=== PATIENT | female | born 1965 | race Caucasian/White ===

== ENCOUNTER 2020-02-05 11:10 | Outpatient (REF) | payer OTHER, SELFPAY ==
[2020-02-05 13:57] LABS: MANUAL DIFF FLAG NO
[2020-02-05 14:03] LABS: Basophils Percent Auto 0.5 % (0-2); Eosinophils Absolute Auto 0.4 X10*3/uL (0.0-0.4); Eosinophils Percent Auto 6.2 % (0-4); Hematocrit 42.5 % (37-47); Imm Gran Abs Auto 0.01 X10*3/uL (0.00-0.03); Imm Gran Pct Auto 0.2 % (0.0-0.4); Mean Corpuscular HGB Conc 32.9 g/dl (31.0-35.0); Mean Corpuscular Hemoglobin 29.8 pg (27.0-33.0); Mean Corpuscular Volume 90.4 fL (80-98); Mean Platelet Volume 9.6 fL (9.4-12.3); Monocytes Absolute Auto 0.6 X10*3/uL (0.1-1.2); Monocytes Percent Auto 9.5 % (2-11); Neutrophils Absolute Auto 3.3 X10*3/uL (2.0-8.3); Neutrophils Percent Auto 51.6 % (45-73); Platelet Count 242 X10*3/uL (160-400); Red Cell Distribution Width 13.4 % (11.0-16.0); White Blood Count 6.3 X10*3/uL (4.8-10.8)
[2020-02-05 14:30] LABS: Anion Gap 12 (12-20); Blood Urea Nitrogen 10 mg/dL (9-16); Carbon Dioxide 26 mmol/L (22-29); Chloride 104 mmol/L (96-108); Estimated Glomerular Filt Rate > 60; Glucose Random 99 mg/dL (60-115); Potassium 4.3 mmol/l (3.3-5.1); Sodium 138 mmol/L (135-145)
[2020-02-05 14:55] LABS: Ferritin 21 ng/mL (10-250); TSH reflex Free T4 1.61 mIU/mL (0.32-4.0)
[2020-02-06 12:01] LABS: LDL Cholesterol Direct 150 mg/dL (<100)
== END 2020-02-05 11:11 | disposition home or self-care (01) ==
LOC: HO.HMGCLDS 11:10
PROVIDERS: PCP Internal Medicine; Visit Provider Internal Medicine
DX: D50.9 Iron deficiency anemia, unspecified (principal); F33.9 Major depressive disorder, recurrent, unspecified; I10 Essential (primary) hypertension; J45.909 Unspecified asthma, uncomplicated
CPT/HCPCS: 36415; 80048; 82728; 83721; 84443; 85025

== ENCOUNTER 2020-03-18 09:13 | Outpatient (REF) | payer OTHER, SELFPAY ==
[2020-03-24 02:32] LABS: HPV mRNA E6/E7 rflx Not Detected (Not Detected)
== END 2020-03-18 09:14 | disposition home or self-care (01) ==
LOC: HO.LAB 09:13
PROVIDERS: PCP Internal Medicine; Referring Provider Internal Medicine; Visit Provider Obstetrics & Gynecology
DX: Z12.4 Encounter for screening for malignant neoplasm of cervix (principal)
CPT/HCPCS: 36415; 87624; 88142

== ENCOUNTER 2020-05-13 14:00 | Outpatient (REF) | payer OTHER, SELFPAY | END 2020-05-13 14:01 | disposition home or self-care (01) | LOC: HO.LNP 14:00 | PROVIDERS: Visit Provider Nurse Practitioner Family | DX: N39.0 Urinary tract infection, site not specified (principal) | CPT/HCPCS: 87086 ==

== ENCOUNTER 2020-06-27 08:28 | Outpatient (REF) | payer OTHER, SELFPAY ==
--- NOTE | ~2020-06-27 | MM_ITS ---
EXAMINATION: MM SCREENING DIGITAL BREAST TOMOSYNTHESIS, BILATERAL CLINICAL INFORMATION: Screening. Asymptomatic. The lifetime risk of breast cancer based on the Tyrer-Cuzick Model is 11%. COMPARISON: Mammography: 01/19/2020, 02/02/2018, 10/07/2016 TECHNIQUE: Digital breast tomosynthesis is performed in both the craniocaudal and mediolateral oblique views along with computer-aided detection (CAD). Synthesized 2D images are generated from the tomosynthesis. FINDINGS: There are scattered areas of fibroglandular density (ACR BI-RADS breast composition Category b). There are no significant masses, abnormal calcifications, or other abnormalities. Parenchymal pattern is similar to prior exams. The axilla and skin contours are unremarkable. MM/MM tomosynthesis screening BI IMPRESSION: No mammographic evidence of malignancy. ASSESSMENT: BI-RADS 1: Negative RECOMMENDATION: Routine annual mammography screening. This patient's information was entered into a reminder system with a target due date for their next mammogram.
== END 2020-06-27 08:29 | disposition home or self-care (01) ==
LOC: HO.MAMMO 08:28
PROVIDERS: PCP Internal Medicine; Visit Provider Internal Medicine
DX: Z12.31 Encounter for screening mammogram for malignant neoplasm of breast (principal)
CPT/HCPCS: 77063; 77067

== ENCOUNTER 2021-03-09 08:48 | Outpatient (REF) | payer OTHER, SELFPAY ==
[2021-03-09 11:17] LABS: MANUAL DIFF FLAG NO
[2021-03-09 11:35] LABS: Basophils Percent Auto 0.3 % (0-2); Eosinophils Absolute Auto 0.4 X10*3/uL (0.0-0.4); Eosinophils Percent Auto 5.4 % (0-4); Hematocrit 39.2 % (37.0-47.0); Hemoglobin 12.8 g/dl (12.0-16.0); Imm Gran Abs Auto 0.02 X10*3/uL (0.00-0.03); Imm Gran Pct Auto 0.3 % (0.0-0.4); Lymphocytes Absolute Auto 1.5 X10*3/uL (1.2-4.9); Lymphocytes Percent Auto 20.5 % (20-40); Mean Corpuscular HGB Conc 32.7 g/dl (31.0-35.0); Mean Corpuscular Hemoglobin 28.6 pg (27.0-33.0); Mean Corpuscular Volume 87.5 fL (80.0-98.0); Mean Platelet Volume 9.6 fL (9.4-12.3); Monocytes Absolute Auto 0.6 X10*3/uL (0.1-1.2); Monocytes Percent Auto 8.7 % (2-11); Neutrophils Absolute Auto 4.7 x10*3/uL (2.0-8.3); Neutrophils Percent Auto 64.8 % (45-73); Platelet Count 216 X10*3/uL (160-400); Red Blood Count 4.48 X10*6/uL (4.20-5.50); Red Cell Distribution Width 15.3 % (11.0-16.0); White Blood Count 7.2 X10*3/uL (4.8-10.8)
[2021-03-09 12:04] LABS: Alanine Aminotransferase 16 U/L (0-31); Albumin Level 4.4 g/dL (3.5-5.0); Alkaline Phosphatase 86 U/L (39-117); Anion Gap 10 (12-20); Aspartate Amino Transferase 14 U/L (5-31); Bilirubin Total 0.5 mg/dL (0.0-1.0); Blood Urea Nitrogen 17 mg/dL (9-16); Calcium 9.7 mg/dL (8.4-10.2); Carbon Dioxide 26 mmol/L (22-29); Chloride 106 mmol/L (96-108); Estimated Glomerular Filt Rate > 60; Glucose Random 99 mg/dL (60-115); Potassium 4.1 mmol/L (3.3-5.1); Sodium 138 mmol/L (135-145); Total Protein 6.8 g/dL (6.5-8.0)
== END 2021-03-09 08:49 | disposition home or self-care (01) ==
LOC: HO.HMGCLDS 08:48
PROVIDERS: PCP Internal Medicine; Visit Provider Internal Medicine
DX: I10 Essential (primary) hypertension (principal); J45.40 Moderate persistent asthma, uncomplicated
CPT/HCPCS: 36415; 80053; 85025

== ENCOUNTER → 2021-03-22 09:37 | Outpatient (BNVA) | payer OTHER, SELFPAY | PROVIDERS: Visit Provider Advanced Practice Midwife ==

== ENCOUNTER 2021-08-21 07:49 | Outpatient (REF) | payer OTHER, SELFPAY ==
--- NOTE | ~2021-08-21 | MM_ITS ---
EXAMINATION: MM SCREENING DIGITAL BREAST TOMOSYNTHESIS, BILATERAL CLINICAL INFORMATION: Screening. Asymptomatic. The lifetime risk of breast cancer based on the Tyrer-Cuzick Model is 10%. COMPARISON: Mammography: 06/27/2020, 04/20/2019, 02/02/2018 TECHNIQUE: Digital breast tomosynthesis is performed in both the craniocaudal and mediolateral oblique views along with computer-aided detection (CAD). Synthesized 2D images are generated from the tomosynthesis. FINDINGS: There are scattered areas of fibroglandular density (ACR BI-RADS breast composition Category b). There are no significant masses, abnormal calcifications, or other abnormalities. No developing density or architectural abnormality. The axilla and skin contours are unremarkable. No significant changes. MM/MM tomosynthesis screening BI IMPRESSION: No mammographic evidence of malignancy. ASSESSMENT: BI-RADS 1: Negative RECOMMENDATION: Routine annual mammography screening. This patient's information was entered into a reminder system with a target due date for their next mammogram.
== END 2021-08-21 07:50 | disposition home or self-care (01) ==
LOC: HO.MAMMO 07:49
PROVIDERS: Visit Provider Internal Medicine
DX: Z12.31 Encounter for screening mammogram for malignant neoplasm of breast (principal)
CPT/HCPCS: 77063; 77067

== ENCOUNTER 2021-08-25 09:55 | Outpatient (REF) | payer OTHER, SELFPAY ==
[2021-08-25 10:58] LABS: MANUAL DIFF FLAG NO
[2021-08-25 11:06] LABS: Basophils Percent Auto 0.3 % (0-2); Eosinophils Absolute Auto 0.4 X10*3/uL (0.0-0.4); Hematocrit 39.5 % (37.0-47.0); Hemoglobin 12.6 g/dl (12.0-16.0); Imm Gran Abs Auto 0.01 X10*3/uL (0.00-0.03); Imm Gran Pct Auto 0.2 % (0.0-0.4); Lymphocytes Absolute Auto 2.1 X10*3/uL (1.2-4.9); Lymphocytes Percent Auto 33.8 % (20-40); Mean Corpuscular HGB Conc 31.9 g/dl (31.0-35.0); Mean Corpuscular Hemoglobin 28.3 pg (27.0-33.0); Mean Corpuscular Volume 88.6 fL (80.0-98.0); Mean Platelet Volume 9.1 fL (9.4-12.3); Monocytes Absolute Auto 0.6 X10*3/uL (0.1-1.2); Monocytes Percent Auto 9.5 % (2-11); Neutrophils Absolute Auto 3.1 x10*3/uL (2.0-8.3); Neutrophils Percent Auto 50.2 % (45-73); Platelet Count 260 X10*3/uL (160-400); Red Blood Count 4.46 X10*6/uL (4.20-5.50); Red Cell Distribution Width 14.1 % (11.0-16.0); White Blood Count 6.2 X10*3/uL (4.8-10.8)
[2021-08-25 11:23] LABS: Alanine Aminotransferase 14 U/L (0-31); Albumin Level 4.3 g/dL (3.5-5.0); Alkaline Phosphatase 83 U/L (39-117); Anion Gap 10 (12-20); Aspartate Amino Transferase 13 U/L (5-31); Bilirubin Total 0.4 mg/dL (0.0-1.0); Blood Urea Nitrogen 16 mg/dL (9-16); Carbon Dioxide 26 mmol/L (22-29); Chloride 108 mmol/L (96-108); Estimated Glomerular Filt Rate > 60; Glucose Random 97 mg/dL (60-115); Potassium 4.2 mmol/L (3.3-5.1); Sodium 140 mmol/L (135-145); Total Protein 6.8 g/dL (6.5-8.0)
[2021-08-25 11:38] LABS: TSH reflex Free T4 1.13 uIU/mL (0.32-4.0)
== END 2021-08-25 09:56 | disposition home or self-care (01) ==
LOC: HO.HMGCLDS 09:55
PROVIDERS: PCP Internal Medicine; Visit Provider Internal Medicine
DX: I10 Essential (primary) hypertension (principal); J45.40 Moderate persistent asthma, uncomplicated; E66.09 Other obesity due to excess calories
CPT/HCPCS: 36415; 80053; 84443; 85025

== ENCOUNTER 2022-01-25 08:49 | Outpatient (REF) | payer OTHER, SELFPAY ==
[2022-01-25 11:32] LABS: MANUAL DIFF FLAG NO
[2022-01-25 11:43] LABS: Basophils Percent Auto 0.2 % (0-2); Eosinophils Absolute Auto 0.3 X10*3/uL (0.0-0.4); Eosinophils Percent Auto 4.8 % (0-4); Imm Gran Abs Auto 0.01 X10*3/uL (0.00-0.03); Imm Gran Pct Auto 0.2 % (0.0-0.4); Lymphocytes Percent Auto 33.2 % (20-40); Mean Corpuscular HGB Conc 32.5 g/dl (31.0-35.0); Mean Corpuscular Hemoglobin 29.1 pg (27.0-33.0); Mean Corpuscular Volume 89.5 fL (80.0-98.0); Mean Platelet Volume 9.9 fL (9.4-12.3); Monocytes Absolute Auto 0.5 X10*3/uL (0.1-1.2); Monocytes Percent Auto 8.6 % (2-11); Neutrophils Absolute Auto 3.2 x10*3/uL (2.0-8.3); Platelet Count 231 X10*3/uL (160-400); Red Blood Count 4.47 X10*6/uL (4.20-5.50); Red Cell Distribution Width 12.9 % (11.0-16.0); White Blood Count 6.1 X10*3/uL (4.8-10.8)
[2022-01-25 12:23] LABS: TSH reflex Free T4 1.21 uIU/mL (0.32-4.0)
[2022-01-25 12:29] LABS: Alanine Aminotransferase 18 U/L (0-31); Albumin Level 4.5 g/dL (3.5-5.0); Alkaline Phosphatase 83 U/L (39-117); Anion Gap 14 (12-20); Aspartate Amino Transferase 18 U/L (5-31); Bilirubin Total 0.4 mg/dL (0.0-1.0); Blood Urea Nitrogen 13 mg/dL (9-16); Calcium 9.4 mg/dL (8.4-10.2); Carbon Dioxide 27 mmol/L (22-29); Chloride 102 mmol/L (96-108); Estimated Glomerular Filt Rate > 60; Glucose Random 107 mg/dL (60-115); Potassium 3.9 mmol/L (3.3-5.1); Sodium 139 mmol/L (135-145)
[2022-01-26 06:31] LABS: LDL Cholesterol Direct 154 mg/dL (<100)
== END 2022-01-25 08:50 | disposition home or self-care (01) ==
LOC: HO.HMGCLDS 08:49
PROVIDERS: PCP Internal Medicine; Visit Provider Internal Medicine
DX: I48.0 Paroxysmal atrial fibrillation (principal); I10 Essential (primary) hypertension; J45.40 Moderate persistent asthma, uncomplicated; F33.9 Major depressive disorder, recurrent, unspecified
CPT/HCPCS: 36415; 80053; 83721; 84443; 85025

== ENCOUNTER → 2022-05-06 14:38 | Outpatient (BNVA) | payer OTHER, SELFPAY | PROVIDERS: PCP Internal Medicine; Visit Provider Advanced Practice Midwife | DX: Z13.89 Encounter for screening for other disorder (principal) ==

== ENCOUNTER 2022-10-06 07:25 | Outpatient (REF) | payer OTHER, SELFPAY ==
--- NOTE | ~2022-10-06 | MM_ITS ---
EXAMINATION: MM SCREENING DIGITAL BREAST TOMOSYNTHESIS, BILATERAL CLINICAL INFORMATION: Screening. Asymptomatic. The lifetime risk of breast cancer based on the Tyrer-Cuzick Model is 9%. COMPARISON: Mammography: This study is compared with prior exams dating back to 2018. TECHNIQUE: Digital breast tomosynthesis is performed in both the craniocaudal and mediolateral oblique views along with computer-aided detection (CAD). Synthesized 2D images are generated from the tomosynthesis. FINDINGS: There are scattered areas of fibroglandular density (ACR BI-RADS breast composition Category b). There are no significant masses, abnormal calcifications, or other abnormalities. MM/MM tomosynthesis screening BI IMPRESSION: No mammographic evidence of malignancy. ASSESSMENT: BI-RADS BI-RADS 1 - Negative RECOMMENDATION: Routine annual mammography screening. 1 year F/U This examination should not preclude the clinical evaluation of a suspicious palpable abnormality. This patient's information was entered into a reminder system with a target due date for their next mammogram.
== END 2022-10-06 07:26 | disposition home or self-care (01) ==
LOC: HO.MAMMO 07:25
PROVIDERS: PCP Internal Medicine; Visit Provider Internal Medicine
DX: Z12.31 Encounter for screening mammogram for malignant neoplasm of breast (principal)
CPT/HCPCS: 77063; 77067

== ENCOUNTER → 2022-10-06 07:30 | Outpatient (BNV) | payer OTHER, SELFPAY | PROVIDERS: PCP Internal Medicine; Visit Provider Radiology Diagnostic Radiology | DX: Z12.31 Encounter for screening mammogram for malignant neoplasm of breast (principal) | CPT/HCPCS: 77063; 77067 ==

== ENCOUNTER 2022-12-27 08:32 | Outpatient (AMB) | payer OTHER, SELFPAY ==
--- NOTE | 2022-12-27 08:40 | A.OFFPC_ITS ---
Vital Signs 3 12/27/22 08:44 Height 5 ft 5 in Weight 212 lb BMI 35.3 BP 132/84 Blood Pressure Location Rt brachial Position Sitting Pulse 56 Pulse Source Pulse Oximeter Pulse Oximetry (%) 96 Oxygen Delivery Method Room Air Intake Visit Reasons: Annual Physical Allergies Sulfa (Sulfonamide Antibiotics) [SULFA (SULFONAMIDE ANTIBIOTICS)] Allergy (Intermediate, Verified 12/27/22 08:46) RASH, rash, itching cyclobenzaprine [From Flexeril] Allergy (Unknown, Verified 12/27/22 08:46) worsens mood Medication List - Last Reconciled 12/27/22 by José Henriquez MD albuterol sulfate 90 mcg/actuation (ProAir HFA) 1 inh inhalation QID PRN 90 days aspirin (Adult Low Dose Aspirin) 81 mg PO DAILY calcium carbonate-vitamin D3 600 mg-10 mcg (400 unit) (Calcium 600 with Vitamin D3) 1 tab PO DAILY flecainide 100 mg PO Q12H fluoxetine 10 mg PO DAILY 90 days fluticasone propion-salmeterol 500-50 mcg/dose (Advair Diskus) 1 inh inhalation BID 90 days hydrochlorothiazide 25 mg PO DAILY 90 days metoprolol succinate ER 50 mg PO DAILY [id number] carb-K1 400 mcg-500 mg calcium-20 mcg (Women's 50 Plus Multivitamin) 1 tab PO DAILY Tobacco use date assessed: 12/27/22 Dental Screening Dental Screen Date: 12/27/22 Did you have a dental visit in the last 12 months?: Yes Did you have a dental problem in the last 6 months where you did not have access to dental care?: No Was dental information given to patient?: Patient has dentist HPI Annual Physical 2 HPI0 Details Patient is a 57-year-old female who was last seen January of last year Missed her regular follow-up appointment Patient have paroxysmal atrial fibrillation she is seeing [facility] and was started on flecainide Her rhythm is regular today Asthma is stable patient is on maintenance inhaler as well as rescue inhaler Major depression recurrent/anxiety: Patient is on fluoxetine 10 mg she is requesting if he can go up to 20 which I have sent for the patient She is due for labs order placed to be done fasting Patient says that she fell in November while walking on a pathway as it was a even she landed on her right shoulder She went to ER [facility] x-rays were negative However she continued to have pain right shoulder and have difficulty lifting her arm above the head She is requesting a referral to [facility]. Pap smears are through [facility] Colonoscopy was at age 50 patient will have a repeat colonoscopy in 3 years Mammogram was September of this year BMI is elevated at 35.3 patient is trying to lose weight. Follow-up 4 months family. social and surgical history was reviewed 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 1. Little interest or pleasure in doing things: not at all 2. Feeling down, depressed, or hopeless: several days 3. Trouble falling or staying asleep, or sleeping too much: not at all 4. Feeling tired or having little energy: several days 5. Poor appetite or overeating: not at all 6. Feeling bad about yourself - or that you are a failure or have let yourself or your family down: not at all 7. Trouble concentrating on things, such as reading the newspaper or watching television: not at all 8. Moving or speaking so slowly that other people could have noticed. Or the opposite - being so fidgety or restless that you have been moving around a lot more than usual: not at all 9. Thoughts that you would be better off or of hurting yourself in some way: not at all Total score: 2 Depression Screening Interpretation: Negative Depression Screening Done: Yes 11549 - PHQ-9 Billing: Yes Source: Developed by Drs. Camilo Dsouza, Sun Blandon, Sheldon Bean and colleagues, with an educational chepe from [employer]. Thrive Questionnaire Date Thrive assessed: 01/25/22 AUDIT C Alcohol Use Questionnaire (AUDIT-C) 1. How often do you have a drink containing alcohol?: Never 3. How often do you have six or more drinks on one occasion?: Never Total Score: 0 Score Reviewed/Action Taken: Yes IRIS-7 AMB Questionnaire IRIS-7 Date IRIS - 7 assessed: 01/25/22 Source: Developed by Drs. Camilo Dsouza, Sun Blandon, Sheldon Bean and colleagues, with an educational chepe from [employer]. Review of Systems Const Denies chills, Denies fever(s) and Denies headache(s) Eyes Denies blurry vision ENT Denies headache(s), Denies nasal discharge, Denies nasal obstruction, Denies odynophagia and Denies sinus pain Card Denies chest pain at rest and Denies chest pain with activity Resp Denies cough and Denies hemoptysis GI Denies diarrhea, Denies odynophagia, Denies vomiting and Denies hematemesis Reports as per HPI Musc Denies abnormal gait Skin/Breast Reports as per HPI Neuro Denies Neuro-related abnormal movements, Denies Abnormal speech present, Denies abnormal gait, Denies headache(s) and Denies Sensory deficit (Neuro) Psych Denies mood swings and Denies paranoia Endo Reports as per HPI Maninder/Lymph Reports as per HPI Aller/Immun Reports as per HPI Physical exam (Primary Care) Vital Signs: Last Vital Signs Pulse 56 12/27/22 08:44 BP 132/84 12/27/22 08:44 Pulse Ox 96 12/27/22 08:44 Oxygen Delivery Method Room Air 12/27/22 08:44 BMI result Body Mass Index 35.3 Tobacco/Smoking Status: Tobacco use Status Tobacco use date assessed 12/27/22 12/27/22 08:46 Patient Tobacco Use Status Never used Tobacco 12/27/22 08:42 e-Cigarette/Vaping Use Never Used 12/27/22 08:42 PHQ-9: PHQ-9 Score PHQ-9: Total score 2 12/27/22 09:51 Depression Screening Interpretation: Negative Thrive Assessment: Date of Thrive Assessment Date Thrive assessed 01/25/22 12/27/22 08:42 Const General: cooperative, comfortable and no acute distress Orientation/consciousness: patient oriented x3 HENMT Head: Yes normocephalic and Yes atraumatic Eyes General: appearance normal, both eyes and all related structures Pupils: Equal, round and reactive pupils present EOM: EOMs intact bilaterally Neck Neck: Yes supple and No lymphadenopathy Thyroid: Thyroid normal Lymphatic: no lymphadenopathy noted Resp Effort & Inspection: normal respiratory effort and able to speak in complete sentences Auscultation: clear to auscultation bilaterally Cardio Heart sounds: S1 normal heart sound present and S2 normal heart sound present GI Palpation (GI): Soft to palpation and nontender Auscultation: normal bowel sounds General: Yes no CVA tenderness Back/Spine/Pelvis Back: no CVA tenderness Skin General skin exam: elasticity normal and turgor normal Neuro General: patient oriented x3 and gait normal Cranial nerves: Yes Equal, round and reactive pupils present Speech: No Abnormal speech present Sensory Exam: No Sensory deficit (Neuro) Coordination: tandem gait normal and Romberg test negative Extrem General: Yes normal exam except as noted and No edema Shoulder/upper arm images: 2 1. Pain with palpation, limited range of motion in extension and abduction Assessment and Plan Assessment & Plan (1) Encounter for general adult medical examination with abnormal findings: Code(s): Z00.01 - Encounter for general adult medical examination with abnormal findings (2) Paroxysmal atrial fibrillation: Code(s): I48.0 - Paroxysmal atrial fibrillation (3) Hypertension, essential: Code(s): I10 - Essential (primary) hypertension (4) Right shoulder injury: Code(s): S49.91XA - Unspecified injury of right shoulder and upper arm, initial encounter Qualifiers: Encounter type: initial encounter Qualified Code(s): S49.91XA - Unspecified injury of right shoulder and upper arm, initial encounter (5) Asthma, moderate persistent: Code(s): J45.40 - Moderate persistent asthma, uncomplicated Qualifiers: Asthma complication type: uncomplicated Qualified Code(s): J45.40 - Moderate persistent asthma, uncomplicated (6) Depression, major, recurrent: Code(s): F33.9 - Major depressive disorder, recurrent, unspecified Qualifiers: Active/Remission status: currently active Major depression episode severity: mild Qualified Code(s): F33.0 - Major depressive disorder, recurrent, mild (7) Iron deficiency anemia: Code(s): D50.9 - Iron deficiency anemia, unspecified Qualifiers: Iron deficiency anemia type: unspecified iron deficiency Qualified Code(s): D50.9 - Iron deficiency anemia, unspecified (8) Tension headache: Code(s): G44.209 - Tension-type headache, unspecified, not intractable (9) Pain, joint, shoulder, right: Code(s): M25.511 - Pain in right shoulder Plan Patient is a 57-year-old female who was last seen January of last year Missed her regular follow-up appointment Patient have paroxysmal atrial fibrillation she is seeing [facility] and was started on flecainide Her rhythm is regular today Asthma is stable patient is on maintenance inhaler as well as rescue inhaler Major depression recurrent/anxiety: Patient is on fluoxetine 10 mg she is requesting if he can go up to 20 which I have sent for the patient She is due for labs order placed to be done fasting Headaches are stable Patient says that she fell in November while walking on a pathway as it was a even she landed on her right shoulder She went to ER [facility] x-rays were negative However she continued to have pain right shoulder and have difficulty lifting her arm above the head She is requesting a referral to [facility]. Pap smears are through [facility] Colonoscopy was at age 50 patient will have a repeat colonoscopy in 3 years Mammogram was September of this year BMI is elevated at 35.3 patient is trying to lose weight. Follow-up 4 months Orders: Orders 2 Complete Blood Count Auto Diff Today D50.9 - Iron deficiency anemia, unspecified, F33.9 - Major depressive disorder, recurrent, unspecified, G44.209 - Tension-type headache, unspecified, not intractable, I10 - Essential (primary) hypertension, I48.0 - Paroxysmal atrial fibrillation, J45.40 - Moderate persistent asthma, uncomplicated, J45.909 - Unspecified asthma, uncomplicated Lipid Panel Today D50.9 - Iron deficiency anemia, unspecified, F33.9 - Major depressive disorder, recurrent, unspecified, G44.209 - Tension-type headache, unspecified, not intractable, I10 - Essential (primary) hypertension, I48.0 - Paroxysmal atrial fibrillation, J45.40 - Moderate persistent asthma, uncomplicated, J45.909 - Unspecified asthma, uncomplicated Comprehensive [place]. Panel Fast Today D50.9 - Iron deficiency anemia, unspecified, F33.9 - Major depressive disorder, recurrent, unspecified, G44.209 - Tension-type headache, unspecified, not intractable, I10 - Essential (primary) hypertension, I48.0 - Paroxysmal atrial fibrillation, J45.40 - Moderate persistent asthma, uncomplicated, J45.909 - Unspecified asthma, uncomplicated Referrals 2 Orthopedics Referral M25.511 - Pain in right shoulder, S49.91XA - Unspecified injury of right shoulder and upper arm, initial encounter Medications: Changed 2 From fluoxetine 10 mg PO DAILY 90 days 90 caps 1RF To fluoxetine 20 mg PO DAILY 90 caps 1RF 90 days Refilled 2 albuterol sulfate 90 mcg/actuation (ProAir HFA) 1 inh inhalation QID PRN 3 multiple units 3RF shortness of breath or wheezing 90 days J45.40 - Moderate persistent asthma, uncomplicated Coding Level of Care Code Est Pt Prev Care 40-64y(16652) Diagnoses Encounter for general adult medical examination with abnormal findings Z00.01 Paroxysmal atrial fibrillation I48.0 Hypertension, essential I10 Injury of right shoulder, initial encounter S49.91XA Encounter type: initial encounter Moderate persistent asthma without complication J45.40 Asthma complication type: uncomplicated Mild episode of recurrent major depressive disorder F33.0 Active/Remission status: currently active Major depression episode severity: mild Iron deficiency anemia, unspecified iron deficiency anemia type D50.9 Iron deficiency anemia type: unspecified iron deficiency Tension headache G44.209 Pain, joint, shoulder, right M25.511
[2022-12-27 08:44] VITALS: BP 132/84; PULSE 56; O2SAT 96; BMI 35.3
== END 2022-12-27 10:38 | disposition home or self-care (01) ==
PROVIDERS: PCP Internal Medicine; Visit Provider Internal Medicine
DX: Z00.00 Encounter for general adult medical examination without abnormal findings (principal); I48.0 Paroxysmal atrial fibrillation; F33.0 Major depressive disorder, recurrent, mild; I10 Essential (primary) hypertension; S49.91XA Unspecified injury of right shoulder and upper arm, initial encounter; J45.40 Moderate persistent asthma, uncomplicated; D50.9 Iron deficiency anemia, unspecified; G44.209 Tension-type headache, unspecified, not intractable; M25.511 Pain in right shoulder
CPT/HCPCS: 99396

== ENCOUNTER 2023-05-12 13:47 | Outpatient (AMB) | payer OTHER, SELFPAY ==
--- NOTE | 2023-05-12 14:02 | MHC.OFFVIS ---
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 She is doing well with no concerns. Attempting to eat a healthy diet with calcium and vitamin D and stays active with exercise w/walking at work. Currently not sexually active. Denies any vaginal dryness or irritation. STI testing offered; she declines. Last pap smear; 2020. Last mammogram; 2022. Colonoscopy is UTD. Pt. is adopted. [facility] Medical History Obesity Depression, major, recurrent Iron deficiency anemia Tension headache Asthma Hypertension, essential Surgical History H/O shoulder surgery History of laparoscopy History of tonsillectomy History of bilateral breast reduction surgery Family History Mother Unknown family medical history Unknown Adopted Social History Household Members: Spouse and Children Housing: House Alcohol intake: never Patient Tobacco Use Status: Never used Tobacco e-Cigarette/Vaping Use: Never Used Second Hand Smoke Exposure: No service: No Current occupational status: employed 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 Sexual orientation: Straight/Heterosexual Gender identity: Female Cognitive needs: No Hearing needs: No Vision needs: No Female Reproductive History Menstrual Age of Menarche: 13 Total pregnancies: 4 Number of Living Children: 3 Ab spontaneous: 1 Date of last pap smear: 03/19/20 Date of Mammogram: 10/06/22 Review of Systems Const All systems reviewed & are unremarkable except as noted in HPI and below Reports as per HPI Eyes Reports no additional complaints ENT Reports no additional complaints Card Reports no additional complaints Resp Reports no additional complaints GI Reports as per HPI and Reports no additional complaints Reports as per HPI Musc Reports no additional complaints Skin/Breast Reports as per HPI Neuro Reports no additional complaints Psych Reports no additional complaints Endo Reports no additional complaints Maninder/Lymph Reports no additional complaints Aller/Immun Reports no additional complaints Physical Exam Vital Signs: Last Vital Signs BP 126/70 05/12/23 14:03 BMI result Body Mass Index 35.4 Const General: cooperative, healthy appearing, no acute distress, well developed and alert Orientation/consciousness: patient oriented x3 HEENT Head: Yes normal to inspection Eyes General: appearance normal, both eyes and all related structures Neck Neck: Yes normal visual inspection Thyroid: Thyroid normal Chest Chest palpation & inspection: normal inspection of the chest and other (no puckering, dimpling, peau de orange, retraction, discharge, masses) Breast/axilla inspection: normal inspection of the breasts Breast/axilla palpation: normal palpation of the breasts Resp Effort & Inspection: normal respiratory effort GI Inspection: Yes normal to inspection Palpation (GI): Soft to palpation Rectal Exam - Female: deferred General: Yes bladder normal to palpation External Female Exam: normal external appearance and normal appearance of the urethra Speculum Exam - Vagina: normal appearance of the vagina, normal palpation, normal vaginal discharge and vagina atrophic Speculum Exam - Cervix: normal appearance of the cervix and normal palpation Bimanual exam- vagina & uterus: normal bimanual exam, normal palpation, uterine size normal, bladder normal to palpation, normal palpation and non-tender Bimanual Exam- Adnexa, other: no masses Skin General skin exam: no rashes or lesions noted Rashes: no rashes Neuro General: patient oriented x3 Cognition (Neuro): normal cognition Extrem General: Yes normal to inspection Psych Attitude: cooperative Thought process: Normal thought process present Assessment & Plan Assessment & Plan (1) Encounter for well woman exam with routine gynecological exam: Code(s): Z01.419 - Encounter for gynecological examination (general) (routine) without abnormal findings Plan Discussed: Current recommendations for pap smears per ASCCP guidelines. Breast awareness, periodic self breast exams and yearly mammogram. Maintain a healthy lifestyle, well balanced diet including Calcium 1,200 mg and Vitamin D 600 IU daily, and routine exercise. Contact the office with any postmenopausal bleeding. Patient verbalizes understanding and agrees to the plan of care. She was given opportunity to ask questions and all questions were answered to the best of my ability. RTO in 1 year for annual wet machine tender exam. This note is constructed using voice recognition software. While every effort has been made to ensure accuracy, design teacher errors may have been included. Coding Level of Care Code Est Pt Prev Care 40-64y(18547) Diagnoses Encounter for well woman exam with routine gynecological exam Z01.419
[2023-05-12 14:03] VITALS: BP 126/70; BMI 35.4
== END 2023-05-12 14:25 | disposition home or self-care (01) ==
LOC: HO.HWS 13:52
PROVIDERS: PCP Internal Medicine; Visit Provider Advanced Practice Midwife
DX: Z01.419 Encounter for gynecological examination (general) (routine) without abnormal findings (principal)
CPT/HCPCS: 99396

== ENCOUNTER → 2023-05-12 13:47 | Outpatient (BNVA) | payer OTHER, SELFPAY | PROVIDERS: PCP Internal Medicine; Visit Provider Advanced Practice Midwife ==

== ENCOUNTER 2023-07-11 09:01 | Outpatient (AMB) | payer OTHER, SELFPAY ==
[2023-07-11 09:05] VITALS: BP 128/78; PULSE 65; O2SAT 97; BMI 36.0
--- NOTE | 2023-07-11 09:05 | A.OFFPC_ITS ---
Vital Signs 07/11/23 09:05 Height 5 ft 5 in Weight 216 lb 6 oz BMI 36.0 BP 128/78 Blood Pressure Location Rt brachial Position Sitting Pulse 65 Pulse Source Pulse Oximeter Pulse Oximetry (%) 97 Oxygen Delivery Method Room Air Intake Visit Reasons: 4 month fu Allergies Sulfa (Sulfonamide Antibiotics) [SULFA (SULFONAMIDE ANTIBIOTICS)] Allergy (Intermediate, Verified 07/11/23 09:08) RASH, rash, itching cyclobenzaprine [From Flexeril] Allergy (Unknown, Verified 07/11/23 09:08) worsens mood Medication List - Last Reconciled 07/11/23 by José Henriquez MD albuterol sulfate 90 mcg/actuation (ProAir HFA) 1 inh inhalation QID PRN 90 days aspirin (Adult Low Dose Aspirin) 81 mg PO DAILY calcium carbonate-vitamin D3 600 mg-10 mcg (400 unit) (Calcium 600 with Vitamin D3) 1 tab PO DAILY flecainide 100 mg PO Q12H fluoxetine 20 mg PO DAILY 90 days fluticasone propion-salmeterol 500-50 mcg/dose (Advair Diskus) 1 inh inhalation BID 90 days hydrochlorothiazide 25 mg PO DAILY 90 days metoprolol succinate ER 50 mg (1/2 x 100 mg) PO DAILY [id number] carb-K1 400 mcg-500 mg calcium-20 mcg (Women's 50 Plus Multivitamin) 1 tab PO DAILY Tobacco use date assessed: 07/11/23 Dental Screening Dental Screen Date: 07/11/23 Did you have a dental visit in the last 12 months?: Yes Did you have a dental problem in the last 6 months where you did not have access to dental care?: No Was dental information given to patient?: Patient has dentist HPI 4 month fu HPI Details Patient is a 57-year-old female came in for her regular follow-up appointment Patient has been feeling under stress due to alcoholism of Currently she is on fluoxetine 20 mg which was working for her, however she want to go up on the dose I have increased it to 40 mg Patient have paroxysmal atrial fibrillation she is seeing [facility] and was started on flecainide 100 mg b.i.d. Her rhythm is regular today Asthma is stable patient is on maintenance inhaler as well as rescue inhaler Labs are still not done, I have changed the order to nonfasting so she can have that done today. 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 Discussed with the patient that it is a series of 4 vaccination over 2 weeks, 0, 3, 7, 14 days And she can get it through pharmacy if she need a script she will let me know Follow-up 4 months [facility] Medical History Obesity Depression, major, recurrent Iron deficiency anemia Tension headache Asthma Hypertension, essential Surgical History H/O shoulder surgery History of laparoscopy History of tonsillectomy History of bilateral breast reduction surgery Family History Mother Unknown family medical history Unknown Adopted Social History Household Members: Spouse and Children Housing: House Alcohol intake: never Patient Tobacco Use Status: Never used Tobacco e-Cigarette/Vaping Use: Never Used Second Hand Smoke Exposure: No service: No Current occupational status: employed 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 1. Little interest or pleasure in doing things: not at all 2. Feeling down, depressed, or hopeless: several days 3. Trouble falling or staying asleep, or sleeping too much: not at all 4. Feeling tired or having little energy: several days 5. Poor appetite or overeating: not at all 6. Feeling bad about yourself - or that you are a failure or have let yourself or your family down: not at all 7. Trouble concentrating on things, such as reading the newspaper or watching television: not at all 8. Moving or speaking so slowly that other people could have noticed. Or the opposite - being so fidgety or restless that you have been moving around a lot more than usual: not at all 9. Thoughts that you would be better off or of hurting yourself in some way: not at all Total score: 2 Depression Screening Interpretation: Negative Depression Screening Done: Yes 66272 - PHQ-9 Billing: Yes Source: Developed by Drs. Camilo Dsouza, Sun Blandon, Sheldon Bean and colleagues, with an educational chepe from [employer]. Thrive Questionnaire Date Thrive assessed: 01/25/22 AUDIT C Alcohol Use Questionnaire (AUDIT-C) 1. How often do you have a drink containing alcohol?: Never 3. How often do you have six or more drinks on one occasion?: Never Total Score: 0 Score Reviewed/Action Taken: Yes IRIS-7 AMB Questionnaire IRIS-7 Date IRIS - 7 assessed: 01/25/22 Source: Developed by Drs. Camilo Dsouza, Sun Blandon, Sheldon Bean and colleagues, with an educational chepe from [employer]. Review of Systems Const Denies chills and Denies fever(s) ENT Denies epistaxis and Denies nasal discharge Card Denies chest pain Resp Denies chest congestion, Denies cough and Denies hemoptysis GI Denies diarrhea and Denies nausea Skin/Breast Denies rash Neuro Reports no additional complaints Psych Reports no additional complaints Endo Reports no additional complaints Physical exam (Primary Care) Vital Signs: Last Vital Signs Pulse 65 07/11/23 09:05 BP 128/78 07/11/23 09:05 Pulse Ox 97 07/11/23 09:05 Oxygen Delivery Method Room Air 07/11/23 09:05 BMI result Body Mass Index 36.0 Tobacco/Smoking Status: Tobacco use Status Tobacco use date assessed 07/11/23 07/11/23 09:08 Patient Tobacco Use Status Never used Tobacco 07/11/23 09:08 e-Cigarette/Vaping Use Never Used 07/11/23 09:08 Depression Screening Interpretation: Negative Thrive Assessment: Date of Thrive Assessment Date Thrive assessed 01/25/22 07/11/23 09:08 Const General: cooperative, comfortable and no acute distress Orientation/consciousness: patient oriented x3 HENMT Head: Yes normocephalic Eyes General: appearance normal, both eyes and all related structures Neck Neck: Yes supple Resp Effort & Inspection: normal respiratory effort, no cough and no stridor Cardio Rhythm: regular rhythm Heart sounds: S1 normal heart sound present and S2 normal heart sound present Skin General skin exam: turgor normal Neuro General: patient oriented x3, tone normal and moves all extremities Extrem Right lower extremity: no edema Left lower extremity: no edema Assessment and Plan Assessment & Plan (1) Hypertension, essential: Code(s): I10 - Essential (primary) hypertension (2) Asthma, moderate persistent: Code(s): J45.40 - Moderate persistent asthma, uncomplicated Qualifiers: Asthma complication type: uncomplicated Qualified Code(s): J45.40 - Moderate persistent asthma, uncomplicated (3) Iron deficiency anemia: Code(s): D50.9 - Iron deficiency anemia, unspecified Qualifiers: Iron deficiency anemia type: unspecified iron deficiency Qualified Code(s): D50.9 - Iron deficiency anemia, unspecified (4) Depression, major, recurrent: Code(s): F33.9 - Major depressive disorder, recurrent, unspecified Qualifiers: Active/Remission status: currently active Major depression episode severity: mild Qualified Code(s): F33.0 - Major depressive disorder, recurrent, mild (5) Paroxysmal atrial fibrillation: Code(s): I48.0 - Paroxysmal atrial fibrillation (6) Obesity due to excess calories: Code(s): E66.09 - Other obesity due to excess calories Qualifiers: Body mass index: BMI 36.0-36.9 Obesity classification: adult class 2 (BMI 35 - 39.9) Serious obesity comorbidity presence: with serious comorbidity Qualified Code(s): E66.01 - Morbid (severe) obesity due to excess calories; Z68.36 - Body mass index [BMI] 36.0-36.9, adult Plan Patient is a 57-year-old female came in for her regular follow-up appointment Patient has been feeling under stress due to alcoholism of Currently she is on fluoxetine 20 mg which was working for her, however she want to go up on the dose I have increased it to 40 mg Patient have paroxysmal atrial fibrillation she is seeing [facility] and was started on flecainide 100 mg b.i.d. Her rhythm is regular today Asthma is stable patient is on maintenance inhaler as well as rescue inhaler Labs are still not done, I have changed the order to nonfasting so she can have that done today. 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 Discussed with the patient that it is a series of 4 vaccination over 2 weeks, 0, 3, 7, 14 days And she can get it through pharmacy if she need a script she will let me know Follow-up 4 months Orders: Orders LDL Cholesterol Direct Today D50.9 - Iron deficiency anemia, unspecified, E66.09 - Other obesity due to excess calories, F33.0 - Major depressive disorder, recurrent, mild, I10 - Essential (primary) hypertension, I48.0 - Paroxysmal atrial fibrillation, J45.40 - Moderate persistent asthma, uncompli cated TSH reflex Free T4 Today D50.9 - Iron deficiency anemia, unspecified, E66.09 - Other obesity due to excess calories, F33.0 - Major depressive disorder, recurrent, mild, I10 - Essential (primary) hypertension, I48.0 - Paroxysmal atrial fibrillation, J45.40 - Moderate persistent asthma, uncomplicated Complete Blood Count Auto Diff Today D50.9 - Iron deficiency anemia, unspecified, E66.09 - Other obesity due to excess calories, F33.0 - Major depressive disorder, recurrent, mild, I10 - Essential (primary) hypertension, I48.0 - Paroxysmal atrial fibrillation, J45.40 - Moderate persistent asthma, uncomplicated Comprehensive Met. Panel Today D50.9 - Iron deficiency anemia, unspecified, E66.09 - Other obesity due to excess calories, F33.0 - Major depressive disorder, recurrent, mild, I10 - Essential (primary) hypertension, I48.0 - Paroxysmal atrial fibrillation, J45.40 - Moderate persistent asthma, uncomplic ated Medications: Changed From fluoxetine 20 mg PO DAILY 90 days 90 caps 1RF To fluoxetine 40 mg (2 x 20 mg) PO DAILY 90 days 180 caps 1RF Refilled fluoxetine 40 mg (2 x 20 mg) PO DAILY 180 caps 1RF 90 days Coding Level of Care Code Est Pt Level 4 (55058) Diagnoses Hypertension, essential I10 Moderate persistent asthma without complication J45.40 Asthma complication type: uncomplicated Iron deficiency anemia, unspecified iron deficiency anemia type D50.9 Iron deficiency anemia type: unspecified iron deficiency Mild episode of recurrent major depressive disorder F33.0 Active/Remission status: currently active Major depression episode severity: mild Paroxysmal atrial fibrillation I48.0 Class 2 severe obesity due to excess calories with serious comorbidity and body mass index (BMI) of 36.0 to 36.9 in adult E66.01; Z68.36 Body mass index: BMI 36.0-36.9 Obesity classification: adult class 2 (BMI 35 - 39.9) Serious obesity comorbidity presence: with serious comorbidity
== END 2023-07-11 09:38 | disposition home or self-care (01) ==
PROVIDERS: PCP Internal Medicine; Visit Provider Internal Medicine
DX: I48.0 Paroxysmal atrial fibrillation (principal); F33.0 Major depressive disorder, recurrent, mild; E66.01 Morbid (severe) obesity due to excess calories; Z68.36 Body mass index [BMI] 36.0-36.9, adult; I10 Essential (primary) hypertension; J45.40 Moderate persistent asthma, uncomplicated; D50.9 Iron deficiency anemia, unspecified
CPT/HCPCS: 99214

== ENCOUNTER 2023-07-11 09:39 | Outpatient (REF) | payer OTHER, SELFPAY ==
[2023-07-11 13:23] LABS: MANUAL DIFF FLAG NO
[2023-07-11 13:33] LABS: Basophils Percent Auto 0.3 % (0-2); Eosinophils Absolute Auto 0.4 X10*3/uL (0.0-0.4); Eosinophils Percent Auto 5.5 % (0-4); Imm Gran Abs Auto 0.03 X10*3/uL (0.00-0.03); Imm Gran Pct Auto 0.4 % (0.0-0.4); Lymphocytes Absolute Auto 2.1 X10*3/uL (1.2-4.9); Lymphocytes Percent Auto 26.9 % (20-40); Mean Corpuscular HGB Conc 32.4 g/dl (31.0-35.0); Mean Corpuscular Hemoglobin 28.4 pg (27.0-33.0); Mean Corpuscular Volume 87.7 fL (80.0-98.0); Mean Platelet Volume 9.5 fL (9.4-12.3); Monocytes Absolute Auto 0.6 X10*3/uL (0.1-1.2); Monocytes Percent Auto 7.8 % (2-11); Neutrophils Absolute Auto 4.6 x10*3/uL (2.0-8.3); Neutrophils Percent Auto 59.1 % (45-73); Platelet Count 261 X10*3/uL (160-400); Red Blood Count 4.22 X10*6/uL (4.20-5.50); White Blood Count 7.8 X10*3/uL (4.8-10.8)
[2023-07-11 14:11] LABS: Alanine Aminotransferase 21 U/L (0-31); Albumin Level 4.3 g/dL (3.5-5.0); Alkaline Phosphatase 79 U/L (39-117); Anion Gap 13 (12-20); Aspartate Amino Transferase 29 U/L (5-31); Bilirubin Total 0.3 mg/dL (0.0-1.0); Blood Urea Nitrogen 23 mg/dL (9-16); Calcium 9.6 mg/dL (8.4-10.2); Carbon Dioxide 27 mmol/L (22-29); Chloride 101 mmol/L (96-108); Estimated Glomerular Filt Rate > 60; Glucose Random 94 mg/dL (60-115); Sodium 137 mmol/L (135-145); Total Protein 7.3 g/dL (6.5-8.0)
[2023-07-11 14:13] LABS: TSH reflex Free T4 1.15 uIU/mL (0.32-4.0)
[2023-07-12 10:09] LABS: LDL Cholesterol Direct 150 mg/dL (<100)
== END 2023-07-11 09:40 | disposition home or self-care (01) ==
LOC: HO.HMGCLDS 09:39
PROVIDERS: PCP Internal Medicine; Visit Provider Internal Medicine
DX: I10 Essential (primary) hypertension (principal); D50.9 Iron deficiency anemia, unspecified; F33.0 Major depressive disorder, recurrent, mild; J45.40 Moderate persistent asthma, uncomplicated; E66.09 Other obesity due to excess calories; I48.0 Paroxysmal atrial fibrillation
CPT/HCPCS: 36415; 80053; 83721; 84443; 85025

== ENCOUNTER 2023-10-10 07:17 | Outpatient (REF) | payer OTHER, SELFPAY ==
--- NOTE | ~2023-10-10 | MM_ITS ---
EXAMINATION: MM SCREENING DIGITAL BREAST TOMOSYNTHESIS, BILATERAL CLINICAL INFORMATION: Screening. Asymptomatic. The patient has a history of prior remote breast reduction. COMPARISON: Mammography: This study is compared with prior exams dating back to 2019. TECHNIQUE: Digital breast tomosynthesis is performed in both the craniocaudal and mediolateral oblique views along with computer-aided detection (CAD). Synthesized 2D images are generated from the tomosynthesis. FINDINGS: The breasts are almost entirely fatty (ACR BI-RADS breast composition Category a). There are no significant masses, abnormal calcifications, or other abnormalities. MM/MM tomosynthesis screening BI IMPRESSION: No mammographic evidence of malignancy. ASSESSMENT: BI-RADS BI-RADS 1 - Negative RECOMMENDATION: Routine annual mammography screening. 1 year F/U This examination should not preclude the clinical evaluation of a suspicious palpable abnormality. This patient's information was entered into a reminder system with a target due date for their next mammogram.
== END 2023-10-10 07:18 | disposition home or self-care (01) ==
LOC: HO.MAMMO 07:17
PROVIDERS: PCP Internal Medicine; Visit Provider Internal Medicine
DX: Z12.31 Encounter for screening mammogram for malignant neoplasm of breast (principal)
CPT/HCPCS: 77063; 77067

== ENCOUNTER → 2023-10-10 07:30 | Outpatient (BNV) | payer OTHER, SELFPAY | PROVIDERS: PCP Internal Medicine; Visit Provider Radiology Diagnostic Radiology | DX: Z12.31 Encounter for screening mammogram for malignant neoplasm of breast (principal) | CPT/HCPCS: 77063; 77067 ==

== ENCOUNTER 2023-11-03 09:28 | Outpatient (AMB) | payer OTHER, SELFPAY ==
[2023-11-03 09:34] VITALS: BP 130/88; PULSE 64; O2SAT 96; BMI 35.6
--- NOTE | 2023-11-03 09:34 | MHC.PC.OV ---
Vital Signs 11/03/23 09:34 Height 5 ft 5 in Weight 214 lb 4 oz BMI 35.6 BP 130/88 Blood Pressure Location Lt brachial Position Sitting Pulse 64 Pulse Source Pulse Oximeter Pulse Oximetry (%) 96 Oxygen Delivery Method Room Air Intake Visit Reasons: 8 month fu Allergies Sulfa (Sulfonamide Antibiotics) [SULFA (SULFONAMIDE ANTIBIOTICS)] Allergy (Intermediate, Verified 11/03/23 09:37) RASH, rash, itching cyclobenzaprine [From Flexeril] Allergy (Unknown, Verified 11/03/23 09:37) worsens mood Medication List - Last Reconciled 11/03/23 by José Henriquez MD albuterol sulfate 90 mcg/actuation (ProAir HFA) 1 inh inhalation QID PRN 90 days aspirin (Adult Low Dose Aspirin) 81 mg PO DAILY calcium carbonate-vitamin D3 600 mg-10 mcg (400 unit) (Calcium 600 with Vitamin D3) 1 tab PO DAILY flecainide 100 mg PO Q12H fluoxetine 40 mg (2 x 20 mg) PO DAILY 90 days fluticasone propion-salmeterol 500-50 mcg/dose (Advair Diskus) 1 inh inhalation BID 90 days hydrochlorothiazide 25 mg PO DAILY 90 days metoprolol succinate ER 50 mg (1/2 x 100 mg) PO DAILY kk-olb-towlx-calcium carb-K1 400 mcg-500 mg calcium-20 mcg (Women's 50 Plus Multivitamin) 1 tab PO DAILY Tobacco use date assessed: 11/03/23 Dental Screening Dental Screen Date: 11/03/23 Did you have a dental visit in the last 12 months?: Yes Did you have a dental problem in the last 6 months where you did not have access to dental care?: No Was dental information given to patient?: Patient has dentist HPI 8 month fu HPI Details Patient is a 57-year-old female came in for her regular follow-up appointment BMI is elevated at 35.7, patient is requesting a script for Wegovy for weight loss She has hypertension, atrial fibrillation, and obesity. After reviewing the side effects script was sent Patient agreed to come in 4 weeks for follow-up after starting the medication She says that she knows how to give herself injections Patient has been feeling under stress due to alcoholism of Currently she is on fluoxetine 40 mg daily Patient says that family has been trying to get him to quit but it has not worked so far Patient have paroxysmal atrial fibrillation she is seeing [facility] and was started on flecainide 100 mg b.i.d. 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 Patient has appointment for physical exam in January labs are needed today [facility] Medical History Obesity Depression, major, recurrent Iron deficiency anemia Tension headache Asthma Hypertension, essential Surgical History H/O shoulder surgery History of laparoscopy History of tonsillectomy History of bilateral breast reduction surgery Family History Mother Unknown family medical history Unknown Adopted Social History Household Members: Spouse and Children Housing: House Alcohol intake: never Patient Tobacco Use Status: Never used Tobacco e-Cigarette/Vaping Use: Never Used Second Hand Smoke Exposure: No service: No Current occupational status: employed 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 1. Little interest or pleasure in doing things: not at all 2. Feeling down, depressed, or hopeless: not at all 3. Trouble falling or staying asleep, or sleeping too much: not at all 4. Feeling tired or having little energy: not at all 5. Poor appetite or overeating: not at all 6. Feeling bad about yourself - or that you are a failure or have let yourself or your family down: not at all 7. Trouble concentrating on things, such as reading the newspaper or watching television: not at all 8. Moving or speaking so slowly that other people could have noticed. Or the opposite - being so fidgety or restless that you have been moving around a lot more than usual: not at all 9. Thoughts that you would be better off or of hurting yourself in some way: not at all Total score: 0 Depression Screening Interpretation: Negative Depression Screening Done: Yes 32326 - PHQ-9 Billing: Yes Source: Developed by Drs. Camilo Dsouza, Sun Blandon, Sheldon Bean and colleagues, with an educational chepe from [employer]. Thrive Questionnaire Date Thrive assessed: 11/03/23 I am a: Patient What is your living situation today?: I have a steady place to live Within the past 12 months, did the food you bought not last and you didn't have the money to get more?: Never true Within the past 12 months, did you worry whether your food would run out before you got money to buy more?: Never true Do you have trouble paying for medicines?: No Do you have trouble getting transportation to medical appointments?: No Do you have trouble paying your heating and electricity bill?: No Do you have trouble taking care of your child, family member or friend?: No Do you have trouble with day-to-day activities such as bathing, preparing meals, shopping, managing finances, etc.?: No Are you currently unemployed and looking for a job?: No Are you interested in more education?: No Please select the resources that you would like help with: None Currently or been in a relationship where the following occur: No concerns reported THRIVE Score: 0 AUDIT C Alcohol Use Questionnaire (AUDIT-C) 1. How often do you have a drink containing alcohol?: Never 3. How often do you have six or more drinks on one occasion?: Never Total Score: 0 Score Reviewed/Action Taken: Yes IRIS-7 AMB Questionnaire IRIS-7 Date IRIS - 7 assessed: 11/03/23 Feeling nervous, anxious, or on edge: 0 = Not at all Not being able to stop or control worryin = Not at all Worrying too much about different things: 0 = Not at all Trouble relaxin = Not at all Being so restless that it is hard to sit still: 0 = Not at all Becoming easily annoyed or irritable: 0 = Not at all Feeling afraid as if something awful might happen: 0 = Not at all Total IRIS-7 score (0-4 normal; 5-9 mild; 10-14 moderate; 15-21 severe): 0 Source: Developed by Drs. Camilo Dsouza, Sun Blandon, Sheldon Bean and colleagues, with an educational chepe from [employer]. IRIS-7 Assessment Billing IRIS-7 Assessment Tool: IRIS-7 Assessment 59409 Review of Systems Const Denies chills and Denies fever(s) ENT Denies epistaxis and Denies nasal discharge Card Denies chest pain Resp Denies chest congestion, Denies cough and Denies hemoptysis GI Denies diarrhea and Denies nausea Skin/Breast Denies rash Neuro Reports no additional complaints Psych Reports no additional complaints Endo Reports no additional complaints Physical exam (Primary Care) Vital Signs: Last Vital Signs Pulse 64 11/03/23 09:34 BP 130/88 11/03/23 09:34 Pulse Ox 96 11/03/23 09:34 Oxygen Delivery Method Room Air 11/03/23 09:34 BMI result Body Mass Index 35.6 Tobacco/Smoking Status: Tobacco use Status Tobacco use date assessed 11/03/23 11/03/23 09:38 Patient Tobacco Use Status Never used Tobacco 11/03/23 09:38 e-Cigarette/Vaping Use Never Used 11/03/23 09:38 PHQ-9: PHQ-9 Score PHQ-9: Total score 0 11/03/23 09:52 Depression Screening Interpretation: Negative Thrive Assessment: Date of Thrive Assessment Date Thrive assessed 11/03/23 11/03/23 09:38 Currently or been in a relationship where the following occur: No concerns reported Const General: cooperative, comfortable and no acute distress Orientation/consciousness: patient oriented x3 HENNM Head: Yes normocephalic Eyes General: appearance normal, both eyes and all related structures Neck Neck: Yes supple Resp Effort & Inspection: normal respiratory effort, no cough and no stridor Cardio Rhythm: regular rhythm Heart sounds: S1 normal heart sound present and S2 normal heart sound present Skin General skin exam: turgor normal Neuro General: patient oriented x3, tone normal and moves all extremities Extrem Right lower extremity: no edema Left lower extremity: no edema Assessment and Plan Assessment & Plan (1) Paroxysmal atrial fibrillation: Code(s): I48.0 - Paroxysmal atrial fibrillation (2) Obesity due to excess calories: Code(s): E66.09 - Other obesity due to excess calories Qualifiers: Body mass index: BMI 36.0-36.9 Obesity classification: adult class 2 (BMI 35 - 39.9) Serious obesity comorbidity presence: with serious comorbidity Qualified Code(s): E66.01 - Morbid (severe) obesity due to excess calories; Z68.36 - Body mass index [BMI] 36.0-36.9, adult (3) Asthma, moderate persistent: Code(s): J45.40 - Moderate persistent asthma, uncomplicated Qualifiers: Asthma complication type: uncomplicated Qualified Code(s): J45.40 - Moderate persistent asthma, uncomplicated (4) Depression, major, recurrent: Code(s): F33.9 - Major depressive disorder, recurrent, unspecified Qualifiers: Active/Remission status: currently active Major depression episode severity: mild Qualified Code(s): F33.0 - Major depressive disorder, recurrent, mild (5) Hypertension, essential: Code(s): I10 - Essential (primary) hypertension Plan Patient is a 57-year-old female came in for her regular follow-up appointment BMI is elevated at 35.7, patient is requesting a script for Sasha for weight loss She has hypertension, atrial fibrillation, and obesity. After reviewing the side effects script was sent Patient agreed to come in 4 weeks for follow-up after starting the medication She says that she knows how to give herself injections Patient has been feeling under stress due to alcoholism of Currently she is on fluoxetine 40 mg daily Patient says that family has been trying to get him to quit but it has not worked so far Patient have paroxysmal atrial fibrillation she is seeing [facility] and was started on flecainide 100 mg b.i.d. 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 Panel Today E66.01 - Morbid (severe) obesity due to excess calories, F33.0 - Major depressive disorder, recurrent, mild, I10 - Essential (primary) hypertension, I48.0 - Paroxysmal atrial fibrillation, J45.40 - Moderate persistent asthma, uncomplicated, Z68.36 - Body mass index [BMI] 36.0-36.9, adult Amylase Today E66.01 - Morbid (severe) obesity due to excess calories, F33.0 - Major depressive disorder, recurrent, mild, I10 - Essential (primary) hypertension, I48.0 - Paroxysmal atrial fibrillation, J45.40 - Moderate persistent asthma, uncomplicated, Z68.36 - Body mass index [BMI] 36.0-36.9, adult LDL Cholesterol Direct Today E66.01 - Morbid (severe) obesity due to excess calories, F33.0 - Major depressive disorder, recurrent, mild, I10 - Essential (primary) hypertension, I48.0 - Paroxysmal atrial fibrillation, J45.40 - Moderate persistent asthma, uncomplicated, Z68.36 - Body mass index [BMI] 36.0-36.9, adult Complete Blood Count Auto Diff Today E66.01 - Morbid (severe) obesity due to excess calories, F33.0 - Major depressive disorder, recurrent, mild, I10 - Essential (primary) hypertension, I48.0 - Paroxysmal atrial fibrillation, J45.40 - Moderate persistent asthma, uncomplicated, Z68.36 - Body mass index [BMI] 36.0-36.9, adult Medications: New Wegovy (semaglutide (weight loss)) administer weeks 1 through 4 of therapy 0.25 mg (0.5 mL) subcut QWEEK 2 mL 1RF NS E66.01 - Morbid (severe) obesity due to excess calories, I10 - Essential (primary) hypertension, I48.0 - Paroxysmal atrial fibrillation, J45.40 - Moderate persistent asthma, uncomplicated, Z68.36 - Body mass index [BMI] 36.0-36.9, adult Wegovy (semaglutide (weight loss)) administer weeks 1 through 4 of therapy 0.25 mg (0.5 mL) subcut QWEEK 2 mL 1RF NS E66.01 - Morbid (severe) obesity due to excess calories, I10 - Essential (primary) hypertension, I48.0 - Paroxysmal atrial fibrillation, J45.40 - Moderate persistent asthma, uncomplicated, Z68.36 - Body mass index [BMI] 36.0-36.9, adult Coding Level of Care Code Est Pt Level 4 (64790) Diagnoses Paroxysmal atrial fibrillation I48.0 Class 2 severe obesity due to excess calories with serious comorbidity and body mass index (BMI) of 36.0 to 36.9 in adult E66.01; Z68.36 Body mass index: BMI 36.0-36.9 Obesity classification: adult class 2 (BMI 35 - 39.9) Serious obesity comorbidity presence: with serious comorbidity Moderate persistent asthma without complication J45.40 Asthma complication type: uncomplicated Mild episode of recurrent major depressive disorder F33.0 Active/Remission status: currently active Major depression episode severity: mild Hypertension, essential I10 Additional Codes IRIS-7 Assessment Billing - IRIS-7 Assessment Tool: IRIS-7 Assessment [id number] ([id number])
== END 2023-11-03 09:52 | disposition home or self-care (01) ==
PROVIDERS: PCP Internal Medicine; Visit Provider Internal Medicine
DX: I48.0 Paroxysmal atrial fibrillation (principal); E66.01 Morbid (severe) obesity due to excess calories; F33.0 Major depressive disorder, recurrent, mild; Z68.36 Body mass index [BMI] 36.0-36.9, adult; J45.40 Moderate persistent asthma, uncomplicated; I10 Essential (primary) hypertension
CPT/HCPCS: 99214

== ENCOUNTER 2023-11-03 09:54 | Outpatient (REF) | payer OTHER, SELFPAY ==
[2023-11-03 13:32] LABS: MANUAL DIFF FLAG NO
[2023-11-03 13:36] LABS: Basophils Percent Auto 0.4 % (0-2); Eosinophils Absolute Auto 0.3 X10*3/uL (0.0-0.4); Eosinophils Percent Auto 4.6 % (0-4); Hematocrit 37.6 % (37.0-47.0); Hemoglobin 12.3 g/dl (12.0-16.0); Imm Gran Abs Auto 0.02 X10*3/uL (0.00-0.03); Imm Gran Pct Auto 0.3 % (0.0-0.4); Lymphocytes Absolute Auto 2.2 X10*3/uL (1.2-4.9); Lymphocytes Percent Auto 31.4 % (20-40); Mean Corpuscular HGB Conc 32.7 g/dl (31.0-35.0); Mean Corpuscular Hemoglobin 27.8 pg (27.0-33.0); Mean Corpuscular Volume 84.9 fL (80.0-98.0); Mean Platelet Volume 9.5 fL (9.4-12.3); Monocytes Absolute Auto 0.6 X10*3/uL (0.1-1.2); Monocytes Percent Auto 8.1 % (2-11); Neutrophils Absolute Auto 3.8 x10*3/uL (2.0-8.3); Neutrophils Percent Auto 55.2 % (45-73); Platelet Count 298 X10*3/uL (160-400); Red Blood Count 4.43 X10*6/uL (4.20-5.50); Red Cell Distribution Width 14.7 % (11.0-16.0); White Blood Count 6.9 X10*3/uL (4.8-10.8)
[2023-11-03 14:05] LABS: Alanine Aminotransferase 15 U/L (0-31); Albumin Level 4.4 g/dL (3.5-5.0); Alkaline Phosphatase 88 U/L (39-117); Amylase 46 U/L (28-100); Anion Gap 12 (12-20); Aspartate Amino Transferase 25 U/L (5-31); Bilirubin Total 0.4 mg/dL (0.0-1.0); Blood Urea Nitrogen 13 mg/dL (9-16); Calcium 9.4 mg/dL (8.4-10.2); Carbon Dioxide 28 mmol/L (22-29); Chloride 102 mmol/L (96-108); Cholesterol 248 mg/dL (<200); Estimated Glomerular Filt Rate > 60; Glucose Fasting 103 mg/dL (60-99); Glucose Random 103 mg/dL (60-115); HDL Cholesterol 72 mg/dL (>40); LDL Cholesterol Calculated 155 mg/dL (<100); Potassium 3.4 mmol/L (3.3-5.1); Sodium 139 mmol/L (135-145); Total Protein 7.5 g/dL (6.5-8.0); Triglycerides 107 mg/dL (<150)
[2023-11-04 10:08] LABS: LDL Cholesterol Direct 170 mg/dL (<100)
== END 2023-11-03 09:55 | disposition home or self-care (01) ==
LOC: HO.HMGCLDS 09:54
PROVIDERS: PCP Internal Medicine; Visit Provider Internal Medicine
DX: I10 Essential (primary) hypertension (principal); F33.9 Major depressive disorder, recurrent, unspecified; D50.9 Iron deficiency anemia, unspecified; J45.909 Unspecified asthma, uncomplicated; G44.209 Tension-type headache, unspecified, not intractable; J45.40 Moderate persistent asthma, uncomplicated; I48.0 Paroxysmal atrial fibrillation; E66.01 Morbid (severe) obesity due to excess calories; Z68.36 Body mass index [BMI] 36.0-36.9, adult; F33.0 Major depressive disorder, recurrent, mild
CPT/HCPCS: 36415; 80053; 80061; 82150; 83721; 85025

== ENCOUNTER 2024-01-12 07:56 | Outpatient (AMB) | payer OTHER, SELFPAY ==
[2024-01-12 07:59] VITALS: BP 140/84; PULSE 65; O2SAT 97; BMI 35.6
--- NOTE | 2024-01-12 07:59 | A.OFFPC_ITS ---
Vital Signs 01/12/24 07:59 Height 5 ft 5 in Weight 214 lb BMI 35.6 BP 140/84 H Blood Pressure Location Rt brachial Position Sitting Pulse 65 Pulse Source Pulse Oximeter Pulse Oximetry (%) 97 Oxygen Delivery Method Room Air Intake Visit Reasons: Annual PE Allergies Sulfa (Sulfonamide Antibiotics) [SULFA (SULFONAMIDE ANTIBIOTICS)] Allergy (Intermediate, Verified 01/12/24 08:02) RASH, rash, itching cyclobenzaprine [From Flexeril] Allergy (Unknown, Verified 01/12/24 08:02) worsens mood Medication List - Last Reconciled 01/12/24 by José Henriquez MD albuterol sulfate 90 mcg/actuation (ProAir HFA) 1 inh inhalation QID PRN 90 days aspirin (Adult Low Dose Aspirin) 81 mg PO DAILY calcium carbonate-vitamin D3 600 mg-10 mcg (400 unit) (Calcium 600 with Vitamin D3) 1 tab PO DAILY flecainide 100 mg PO Q12H fluoxetine 40 mg (2 x 20 mg) PO DAILY 90 days fluticasone propion-salmeterol 500-50 mcg/dose (Advair Diskus) 1 inh inhalation BID 90 days hydrochlorothiazide 25 mg PO DAILY 90 days metoprolol succinate ER 50 mg (1/2 x 100 mg) PO DAILY [id number]-calcium carb-K1 400 mcg-500 mg calcium-20 mcg (Women's 50 Plus Mul tivitamin) 1 tab PO DAILY Wegovy (semaglutide (weight loss)) 0.25 mg (0.5 mL) subcut QWEEK NS Tobacco use date assessed: 01/12/24 Dental Screening Dental Screen Date: 01/12/24 Did you have a dental visit in the last 12 months?: Yes Did you have a dental problem in the last 6 months where you did not have access to dental care?: No Was dental information given to patient?: Patient has dentist HPI Annual PE HPI Details Patient is a 58-year-old female came in for physical exam appointment Patient would like to be on Wegovy injection for weight loss We tried to send it to her pharmacy, but so far she has not been able to pick it up We are trying to sort out the problem, I have given her the print out as well Pharmacy keeps saying that it needs a prior authorization however in the system when we sent the prescription no prior authorization pops up Patient have paroxysmal atrial fibrillation she is seeing [facility] and was started on flecainide Her rhythm is regular today Asthma is stable patient is on maintenance inhaler as well as rescue inhaler Major depression recurrent/anxiety: Patient is on fluoxetine 40 mg of fluoxetine, doing well She is aware that Semaglutide can make the depression worse Labs were done October of this year Patient is prediabetic Her lipids are elevated as well, I am starting her on simvastatin 20 mg She will repeat labs again in 2 months, order placed Pap smears are through [facility] Colonoscopy was at age 50 patient will have a repeat colonoscopy at age 60 Mammogram up-to-date Follow-up 4 months [facility] Medical History Obesity Depression, major, recurrent Iron deficiency anemia Tension headache Asthma Hypertension, essential Surgical History H/O shoulder surgery History of laparoscopy History of tonsillectomy History of bilateral breast reduction surgery Family History Mother Unknown family medical history Unknown Adopted Social History Household Members: Spouse and Children Housing: House Alcohol intake: never Patient Tobacco Use Status: Never used Tobacco e-Cigarette/Vaping Use: Never Used Second Hand Smoke Exposure: No service: No Current occupational status: employed 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 Sexual orientation: Straight/Heterosexual Gender identity: Female Cognitive needs: No Hearing needs: No Vision needs: Yes Female Reproductive History Menstrual Age of Menarche: 13 Questionnaire Thrive Questionnaire Date Thrive assessed: 10/27/23 I am a: Patient What is your living situation today?: I have a steady place to live Within the past 12 months, did the food you bought not last and you didn't have the money to get more?: Never true Within the past 12 months, did you worry whether your food would run out before you got money to buy more?: Never true Do you have trouble paying for medicines?: No Do you have trouble getting transportation to medical appointments?: No Do you have trouble paying your heating and electricity bill?: No Do you have trouble taking care of your child, family member or friend?: No Do you have trouble with day-to-day activities such as bathing, preparing meals, shopping, managing finances, etc.?: No Are you currently unemployed and looking for a job?: No Are you interested in more education?: No Please select the resources that you would like help with: None Currently or been in a relationship where the following occur: No concerns reported THRIVE Score: 0 AUDIT C Alcohol Use Questionnaire (AUDIT-C) 3. How often do you have six or more drinks on one occasion?: Never Total Score: 0 IRIS-7 AMB Questionnaire IRIS-7 Date IRIS - 7 assessed: 11/03/23 Source: Developed by Drs. Camilo Dsouza, Sun Blandon, Sheldon Bean and colleagues, with an educational chepe from [employer]. Review of Systems Const Denies chills, Denies fever(s) and Denies headache(s) Eyes Denies blurry vision ENT Denies headache(s), Denies nasal discharge, Denies nasal obstruction, Denies odynophagia and Denies sinus pain Card Denies chest pain at rest and Denies chest pain with activity Resp Denies cough and Denies hemoptysis GI Denies diarrhea, Denies odynophagia, Denies vomiting and Denies hematemesis Reports as per HPI Musc Denies abnormal gait Skin/Breast Reports as per HPI Neuro Denies Neuro-related abnormal movements, Denies Abnormal speech present, Denies abnormal gait, Denies headache(s) and Denies Sensory deficit (Neuro) Psych Denies mood swings and Denies paranoia Endo Reports as per HPI Maninder/Lymph Reports as per HPI Aller/Immun Reports as per HPI Physical exam (Primary Care) Vital Signs: Last Vital Signs Pulse 65 01/12/24 07:59 BP 140/84 H 01/12/24 07:59 Pulse Ox 97 01/12/24 07:59 Oxygen Delivery Method Room Air 01/12/24 07:59 BMI result Body Mass Index 35.6 Tobacco/Smoking Status: Tobacco use Status Tobacco use date assessed 01/12/24 01/12/24 08:03 Patient Tobacco Use Status Never used Tobacco 01/12/24 08:03 e-Cigarette/Vaping Use Never Used 01/12/24 08:03 Thrive Assessment: Date of Thrive Assessment Date Thrive assessed 10/27/23 01/12/24 08:03 Currently or been in a relationship where the following occur: No concerns reported Const General: cooperative, comfortable and no acute distress Orientation/consciousness: patient oriented x3 HENMT Head: Yes normocephalic and Yes atraumatic Eyes General: appearance normal, both eyes and all related structures Pupils: Equal, round and reactive pupils present EOM: EOMs intact bilaterally Neck Neck: Yes supple and No lymphadenopathy Thyroid: Thyroid normal Lymphatic: no lymphadenopathy noted Chest Breast/axilla palpation: normal palpation of the breasts Resp Effort & Inspection: normal respiratory effort and able to speak in complete sentences Auscultation: clear to auscultation bilaterally Cardio Heart sounds: S1 normal heart sound present and S2 normal heart sound present GI Palpation (GI): Soft to palpation and nontender Auscultation: normal bowel sounds General: Yes no CVA tenderness Back/Spine/Pelvis Back: no CVA tenderness Skin General skin exam: elasticity normal and turgor normal Neuro General: patient oriented x3 and gait normal Cranial nerves: Yes Equal, round and reactive pupils present Speech: No Abnormal speech present Sensory Exam: No Sensory deficit (Neuro) Coordination: tandem gait normal and Romberg test negative Extrem General: Yes normal exam except as noted and No edema Coding Level of Care Code Est Pt Level 3 (45578) Est Pt Prev Care 40-64y(34067) Diagnoses Encounter for general adult medical examination with abnormal findings Z. Lipid disorder E78.9 Paroxysmal atrial fibrillation I48.0 Class 2 severe obesity due to excess calories with serious comorbidity and body mass index (BMI) of 36.0 to 36.9 in adult E66.01; Z68.36 Body mass index: BMI 36.0-36.9 Obesity classification: adult class 2 (BMI 35 - 39.9) Serious obesity comorbidity presence: with serious comorbidity Moderate persistent asthma without complication J45.40 Asthma complication type: uncomplicated Mild episode of recurrent major depressive disorder F33.0 Active/Remission status: currently active Major depression episode severity: mild Hypertension, essential I10 Assessment & Plan Assessment & Plan (1) Encounter for general adult medical examination with abnormal findings: Code(s): Z00.01 - Encounter for general adult medical examination with abnormal findings Category: Medical (2) Lipid disorder: Code(s): E78.9 - Disorder of lipoprotein metabolism, unspecified Category: Medical (3) Paroxysmal atrial fibrillation: Code(s): I48.0 - Paroxysmal atrial fibrillation Category: Medical (4) Obesity due to excess calories: Code(s): E66.09 - Other obesity due to excess calories Category: Medical Qualifiers: Body mass index: BMI 36.0-36.9 Obesity classification: adult class 2 (BMI 35 - 39.9) Serious obesity comorbidity presence: with serious comorbidity Qualified Code(s): E66.01 - Morbid (severe) obesity due to excess calories; Z68.36 - Body mass index [BMI] 36.0-36.9, adult (5) Asthma, moderate persistent: Code(s): J45.40 - Moderate persistent asthma, uncomplicated Category: Medical Qualifiers: Asthma complication type: uncomplicated Qualified Code(s): J45.40 - Moderate persistent asthma, uncomplicated (6) Depression, major, recurrent: Code(s): F33.9 - Major depressive disorder, recurrent, unspecified Category: Medical Qualifiers: Active/Remission status: currently active Major depression episode severity: mild Qualified Code(s): F33.0 - Major depressive disorder, recurrent, mild (7) Hypertension, essential: Code(s): I10 - Essential (primary) hypertension Category: Medical Plan Patient is a 58-year-old female came in for physical exam appointment Patient would like to be on Wegovy injection for weight loss We tried to send it to her pharmacy, but so far she has not been able to pick it up We are trying to sort out the problem, I have given her the print out as well Pharmacy keeps saying that it needs a prior authorization however in the system when we sent the prescription no prior authorization pops up Patient have paroxysmal atrial fibrillation she is seeing [facility] and was started on flecainide Her rhythm is regular today Asthma is stable patient is on maintenance inhaler as well as rescue inhaler Major depression recurrent/anxiety: Patient is on fluoxetine 40 mg of fluoxetine, doing well She is aware that Semaglutide can make the depression worse Labs were done October of this year Patient is prediabetic Her lipids are elevated as well, I am starting her on simvastatin 20 mg She will repeat labs again in 2 months, order placed Pap smears are through [facility] Colonoscopy was at age 50 patient will have a repeat colonoscopy at age 60 Mammogram up-to-date Follow-up 4 months Orders: Orders Comprehensive Met. Panel 6 Weeks E78.9 - Disorder of lipoprotein metabolism, unspecified Comprehensive [place]. Panel Fast 6 Weeks E78.9 - Disorder of lipoprotein metabolism, unspecified Medications: New simvastatin 20 mg PO DAILY 90 tabs 0RF Refilled Wegovy (semaglutide (weight loss)) administer weeks 1 through 4 of therapy 0.25 mg (0.5 mL) subcut QWEEK 2 mL 1RF NS E66.01 - Morbid (severe) obesity due to excess calories, I10 - Essential (primary) hypertension, I48.0 - Paroxysmal atrial fibrillation, J45.40 - Moderate persistent asthma, uncomplicated, Z68.36 - Body mass index [BMI] 36.0- 36.9, adult Wegovy (semaglutide (weight loss)) administer weeks 1 through 4 of therapy 0.25 mg (0.5 mL) subcut QWEEK 2 mL 1RF NS E66.01 - Morbid (severe) obesity due to excess calories, I10 - Essential (primary) hypertension, I48.0 - Paroxysmal atrial fibrillation, J45.40 - Moderate persistent asthma, uncomplicated, Z68.36 - Body mass index [BMI] 36.0-3 6.9, adult Wegovy (semaglutide (weight loss)) administer weeks 1 through 4 of therapy 0.25 mg (0.5 mL) subcut QWEEK 2 mL 1RF NS E66.01 - Morbid (severe) obesity due to excess calories, I10 - Essential (primary) hypertension, I48.0 - Paroxysmal atrial fibrillation, J45.40 - Moderate persistent asthma, uncomplicated, Z68.36 - Body mass index [BMI] 36.0- 36.9, adult
== END 2024-01-12 08:44 | disposition home or self-care (01) ==
LOC: HO.HMCC 07:57
PROVIDERS: PCP Internal Medicine; Visit Provider Internal Medicine
DX: Z00.00 Encounter for general adult medical examination without abnormal findings (principal); I48.0 Paroxysmal atrial fibrillation; E66.01 Morbid (severe) obesity due to excess calories; F33.0 Major depressive disorder, recurrent, mild; Z68.36 Body mass index [BMI] 36.0-36.9, adult; E78.9 Disorder of lipoprotein metabolism, unspecified; J45.40 Moderate persistent asthma, uncomplicated; I10 Essential (primary) hypertension

== ENCOUNTER → 2024-01-12 07:56 | Outpatient (BNVA) | payer OTHER, SELFPAY | PROVIDERS: PCP Internal Medicine; Visit Provider Internal Medicine | DX: Z00.01 Encounter for general adult medical examination with abnormal findings (principal); E78.9 Disorder of lipoprotein metabolism, unspecified; I48.0 Paroxysmal atrial fibrillation; E66.01 Morbid (severe) obesity due to excess calories; Z68.36 Body mass index [BMI] 36.0-36.9, adult; J45.40 Moderate persistent asthma, uncomplicated; F33.0 Major depressive disorder, recurrent, mild; I10 Essential (primary) hypertension | CPT/HCPCS: 99212 ==

== ENCOUNTER 2024-05-16 08:03 | Outpatient (AMB) | payer OTHER, SELFPAY ==
--- NOTE | 2024-05-16 08:06 | MHC.OFFVIS ---
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 She is doing well with operations liaison concerns. Currently not sexually active. Denies any vaginal dryness or irritation. Attempting to eat a healthy diet with calcium and vitamin D and stays active with exercise. Last pap smear; 2020. Last mammogram; 2023. Colonoscopy is UTD. Patient is adopted. REPLACED BY [facility] Medical History (Updated 05/16/24 @ 08:11 by Whitney Barraza CNM) Encounter for well woman exam with routine gynecological exam Obesity Depression, major, recurrent Iron deficiency anemia Tension headache Asthma Hypertension, essential Surgical History H/O shoulder surgery History of laparoscopy History of tonsillectomy History of bilateral breast reduction surgery Family History Mother Unknown family medical history Unknown Adopted Social History Household Members: Spouse and Children Housing: House Alcohol intake: never Patient Tobacco Use Status: Never used Tobacco e-Cigarette/Vaping Use: Never Used Second Hand Smoke Exposure: No service: No Current occupational status: employed 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 Sexual orientation: Straight/Heterosexual Gender identity: Female Cognitive needs: No Hearing needs: No Vision needs: Yes Female Reproductive History Menstrual Age of Menarche: 13 Total pregnancies: 4 Full term: 3 Number of Living Children: 4 (1 child adopted) Ab spontaneous: 1 Date of last pap smear: 03/18/20 (neg pap and hpv) Date of Mammogram: 10/10/23 (Bir[facility] 1) Review of Systems Const All systems reviewed & are unremarkable except as noted in HPI and below Reports as per HPI Eyes Reports no additional complaints ENT Reports no additional complaints Card Reports no additional complaints Resp Reports no additional complaints GI Reports as per HPI and Reports no additional complaints Reports as per HPI Musc Reports no additional complaints Skin/Breast Reports as per HPI Neuro Reports no additional complaints Psych Reports no additional complaints Endo Reports no additional complaints Maninder/Lymph Reports no additional complaints Aller/Immun Reports no additional complaints Physical Exam Const General: cooperative, healthy appearing, no acute distress, well developed and alert Orientation/consciousness: patient oriented x3 HEENT Head: Yes normal to inspection Eyes General: appearance normal, both eyes and all related structures Neck Neck: Yes normal visual inspection Thyroid: Thyroid normal Chest Other: Bilateral breast reduction scarring Chest palpation & inspection: normal inspection of the chest and other (no puckering, dimpling, peau de orange, retraction, discharge, masses) Breast/axilla inspection: normal inspection of the breasts Breast/axilla palpation: normal palpation of the breasts Resp Effort & Inspection: normal respiratory effort GI Inspection: Yes normal to inspection Palpation (GI): Soft to palpation Rectal Exam - Female: deferred General: Yes bladder normal to palpation External Female Exam: normal external appearance and normal appearance of the urethra Speculum Exam - Vagina: normal appearance of the vagina, normal palpation, normal vaginal discharge and vagina atrophic Speculum Exam - Cervix: normal appearance of the cervix and normal palpation Bimanual exam- vagina & uterus: normal bimanual exam, normal palpation, uterine size normal, bladder normal to palpation, normal palpation and non-tender Bimanual Exam- Adnexa, other: no masses Skin General skin exam: no rashes or lesions noted Rashes: no rashes Neuro General: patient oriented x3 Cognition (Neuro): normal cognition Extrem General: Yes normal to inspection Psych Attitude: cooperative Thought process: Normal thought process present Assessment & Plan Assessment & Plan (1) Encounter for well woman exam with routine gynecological exam: Code(s): Z01.419 - Encounter for gynecological examination (general) (routine) without abnormal findings Category: Medical Plan Discussed: Current recommendations for pap smears per ASCCP guidelines. Breast awareness, periodic self breast exams and yearly mammogram. Maintain a healthy lifestyle, well balanced diet including Calcium 1,200 mg and Vitamin D 600 IU daily, and routine exercise. Contact the office with any postmenopausal bleeding. Patient verbalizes understanding and agrees to the plan of care. She was given opportunity to ask questions and all questions were answered to the best of my ability. RTO in 1 year for annual operations liaison exam. This note is constructed using voice recognition software. While every effort has been made to ensure accuracy, candy counter clerk errors may have been included. Coding Level of Care Code Est Pt Prev Care 40-64y(09361) Diagnoses Encounter for well woman exam with routine gynecological exam Z01.419
[2024-05-16 08:07] VITALS: BP 114/78; BMI 34.9
== END 2024-05-16 08:29 | disposition home or self-care (01) ==
PROVIDERS: PCP Internal Medicine; Visit Provider Advanced Practice Midwife
DX: Z01.419 Encounter for gynecological examination (general) (routine) without abnormal findings (principal)
CPT/HCPCS: 99396; 99459

== ENCOUNTER → 2024-05-16 08:03 | Outpatient (BNVA) | payer OTHER, SELFPAY | PROVIDERS: PCP Internal Medicine; Visit Provider Advanced Practice Midwife | DX: Z01.419 Encounter for gynecological examination (general) (routine) without abnormal findings (principal) | CPT/HCPCS: 99396; 99459 ==

== ENCOUNTER 2024-06-11 08:31 | Outpatient (AMB) | payer OTHER, SELFPAY ==
[2024-06-11 08:40] VITALS: BP 112/70; PULSE 80; TEMP 36.8; O2SAT 98; BMI 34.9
--- NOTE | 2024-06-11 08:40 | A.OFFPC_ITS ---
Vital Signs 3 06/11/24 08:40 Height 5 ft 5 in Weight 210 lb BMI 34.9 BP 112/70 Blood Pressure Location Rt brachial Position Sitting Pulse 80 Pulse Source Pulse Oximeter Temp 98.3 F Temp Source Oral Pulse Oximetry (%) 98 Oxygen Delivery Method Room Air Intake Visit Reasons: 4 months f/up Allergies Sulfa (Sulfonamide Antibiotics) [SULFA (SULFONAMIDE ANTIBIOTICS)] Allergy (Intermediate, Verified 06/11/24 08:41) RASH, rash, itching cyclobenzaprine [From Flexeril] Allergy (Unknown, Verified 06/11/24 08:41) worsens mood Medication List - Last Reconciled 06/11/24 by José Henriquez MD albuterol sulfate 90 mcg/actuation (ProAir HFA) 1 inh inhalation QID PRN 90 days aspirin (Adult Low Dose Aspirin) 81 mg PO DAILY calcium carbonate-vitamin D3 600 mg-10 mcg (400 unit) (Calcium 600 with Vitamin D3) 1 tab PO DAILY flecainide 100 mg PO Q12H fluoxetine 40 mg (2 x 20 mg) PO DAILY 90 days fluticasone propion-salmeterol 500-50 mcg/dose (Advair Diskus) 1 inh inhalation BID 90 days hydrochlorothiazide 25 mg PO DAILY 90 days metoprolol succinate ER 50 mg (1/2 x 100 mg) PO DAILY tu-mgq-cseys-calcium carb-K1 400 mcg-500 mg calcium-20 mcg (Women's 50 Plus Multivitamin) 1 tab PO DAILY simvastatin 20 mg PO DAILY Wegovy (semaglutide (weight loss)) 0.25 mg (0.5 mL) subcut QWEEK NS Tobacco use date assessed: 06/11/24 Dental Screening Dental Screen Date: 06/11/24 Did you have a dental visit in the last 12 months?: Yes Did you have a dental problem in the last 6 months where you did not have access to dental care?: No Was dental information given to patient?: Patient has dentist HPI 4 months f/up 2 HPI0 Details - The patient is a 58-year-old female 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 - The pain began six months ago after a fall down the stairs and persists with intermittent throbbing. - There is no limping, but a conscious a lteration in walking pattern to avoid exacerbating the pain. - The patient expresses concern about po tential foot immobilization affecting work. - No skin abnormalities are present on t he foot. - An x-ray was not conducted initially. - obesity: Semaglutide injection were rejected by the insurance company patient is having difficulty losing weight Medications - Albuterol: For respiratory symptoms, a s needed. - Flecainide: For chronic atrial fibril lation through Cardiology - Fluoxetine: For depression or anxiety. - Hydrochlorothiazide: For hypertension or fluid retention. - Metoprolol: For hypertension or cardia c conditions. - Simvastatin: Not yet started, intended for hyperlipidemia management. Problem List - Prediabetes - High LDL Cholesterol - Left Foot Pain - Need for Simvastatin Therapy, medicati on was sent but patient has not started yet she was start soon - chronic atrial fibrillation - obesity Diagnostic results - Labs: Prediabetes reported from October lab results. - LDL cholesterol reported high. Patient Instructions - Proceed with obtaining the x-ray of th e left foot. - Schedule an appointment with a podiatr ist for further evaluation of the foot pain. - Monitor walking pattern and avoid chirinos ges that might affect body alignment. - Return for a follow-up in four months. - continue all other medications - labs to be done today and then again before next visit after starting simvastatin Review of Systems General: No fever no chills neurological: No headaches no dizziness ear nose throat: No sore throat no hearing difficulty no ear pain cardiovascular: No syncope, no chest pain, no palpitations gastrointestinal: No nausea vomiting or diarrhea endocrine: No polyuria polydipsia no heat intolerance genitourinary: No dysuria skin: No new complaints Physical Exam general: No acute distress HEENT: No acute findings neck: Supple respiratory system: Able to talk in full sentences, no audible wheeze no stridor cardiovascular: S1-S2 gastrointestinal: No pain extremities: Pain in the left foot, possibly plantar fasciitis, affecting gait 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 awake oriented x3 motor sensory intact skin: Normal turgor, skin on foot is okay [facility] Medical History Encounter for well woman exam with routine gynecological exam Obesity Depression, major, recurrent Iron deficiency anemia Tension headache Asthma Hypertension, essential Surgical History H/O shoulder surgery History of laparoscopy History of tonsillectomy History of bilateral breast reduction surgery Family History Mother Unknown family medical history Unknown Adopted Social History Household Members: Spouse and Children Housing: House Alcohol intake: never Patient Tobacco Use Status: Never used Tobacco e-Cigarette/Vaping Use: Never Used Second Hand Smoke Exposure: No service: No Current occupational status: employed 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 1. Little interest or pleasure in doing things: not at all 2. Feeling down, depressed, or hopeless: not at all 3. Trouble falling or staying asleep, or sleeping too much: not at all 4. Feeling tired or having little energy: not at all 5. Poor appetite or overeating: not at all 6. Feeling bad about yourself - or that you are a failure or have let yourself or your family down: not at all 7. Trouble concentrating on things, such as reading the newspaper or watching television: not at all 8. Moving or speaking so slowly that other people could have noticed. Or the opposite - being so fidgety or restless that you have been moving around a lot more than usual: not at all 9. Thoughts that you would be better off or of hurting yourself in some way: not at all Total score: 0 Depression Screening Interpretation: Negative Depression Screening Done: Yes 39059 - PHQ-9 Billing: Yes Source: Developed by Drs. Camilo Dsouza, Sun Blandon, Sheldon Bean and colleagues, with an educational chepe from [employer]. Thrive Questionnaire Date Thrive assessed: 06/04/24 I am a: Patient What is your living situation today?: I have a steady place to live Within the past 12 months, did the food you bought not last and you didn't have the money to get more?: Never true Within the past 12 months, did you worry whether your food would run out before you got money to buy more?: Never true Do you have trouble paying for medicines?: No Do you have trouble getting transportation to medical appointments?: No Do you have trouble paying your heating and electricity bill?: No Do you have trouble taking care of your child, family member or friend?: No Do you have trouble with day-to-day activities such as bathing, preparing meals, shopping, managing finances, etc.?: No Are you currently unemployed and looking for a job?: No Are you interested in more education?: No Please select the resources that you would like help with: None Currently or been in a relationship where the following occur: No concerns reported THRIVE Score: 0 AUDIT C Alcohol Use Questionnaire (AUDIT-C) 1. How often do you have a drink containing alcohol?: Never 3. How often do you have six or more drinks on one occasion?: Never Total Score: 0 IRIS-7 AMB Questionnaire IRIS-7 Date IRIS - 7 assessed: 06/11/24 Feeling nervous, anxious, or on edge: 0 = Not at all Not being able to stop or control worryin = Not at all Worrying too much about different things: 0 = Not at all Trouble relaxin = Not at all Being so restless that it is hard to sit still: 0 = Not at all Becoming easily annoyed or irritable: 0 = Not at all Feeling afraid as if something awful might happen: 0 = Not at all Total IRIS-7 score (0-4 normal; 5-9 mild; 10-14 moderate; 15-21 severe): 0 Source: Developed by Drs. Camilo Dsouza, Sun Blandon, Sheldon Bean and colleagues, with an educational chepe from [employer]. IRIS-7 Assessment Billing IRIS-7 Assessment Tool: IRIS-7 Assessment 29566 Physical exam (Primary Care) Vital Signs: Last Vital Signs Temp 98.3 F 06/11/24 08:40 Pulse 80 06/11/24 08:40 BP 112/70 06/11/24 08:40 Pulse Ox 98 06/11/24 08:40 Oxygen Delivery Method Room Air 06/11/24 08:40 BMI result Body Mass Index 34.9 Tobacco/Smoking Status: Tobacco use Status Tobacco use date assessed 06/11/24 06/11/24 08:45 Patient Tobacco Use Status Never used Tobacco 06/11/24 08:45 e-Cigarette/Vaping Use Never Used 06/11/24 08:45 PHQ-9: PHQ-9 Score PHQ-9: Total score 0 06/11/24 09:04 Depression Screening Interpretation: Negative Thrive Assessment: Date of Thrive Assessment Date Thrive assessed 06/04/24 06/11/24 08:45 Currently or been in a relationship where the following occur: No concerns reported Extrem Ankle/foot/toe images: 2 1. site of pain with palpation, ankle with full range of motion neurovascular intact Coding Level of Care Code Est Pt Level 4 (74726) Diagnoses Hypertension, essential I10 Iron deficiency anemia, unspecified iron deficiency anemia type D50.9 Iron deficiency anemia type: unspecified iron deficiency Mild episode of recurrent major depressive disorder F33.0 Active/Remission status: currently active Major depression episode severity: mild Moderate persistent asthma without complication J45.40 Asthma complication type: uncomplicated Paroxysmal atrial fibrillation I48.0 Foot pain, left M79.672 Additional Codes IRIS-7 Assessment Billing - IRIS-7 Assessment Tool: IRIS-7 Assessment 62135 ([id number]) PHQ-9 - 62187 - PHQ-9 Billing: Yes ([id number]) Assessment & Plan Assessment & Plan (1) Hypertension, essential: Code(s): I10 - Essential (primary) hypertension Category: Medical (2) Iron deficiency anemia: Code(s): D50.9 - Iron deficiency anemia, unspecified Category: Medical Qualifiers: Iron deficiency anemia type: unspecified iron deficiency Qualified Code(s): D50.9 - Iron deficiency anemia, unspecified (3) Depression, major, recurrent: Code(s): F33.9 - Major depressive disorder, recurrent, unspecified Category: Medical Qualifiers: Active/Remission status: currently active Major depression episode severity: mild Qualified Code(s): F33.0 - Major depressive disorder, recurrent, mild (4) Asthma, moderate persistent: Code(s): J45.40 - Moderate persistent asthma, uncomplicated Category: Medical Qualifiers: Asthma complication type: uncomplicated Qualified Code(s): J45.40 - Moderate persistent asthma, uncomplicated (5) Paroxysmal atrial fibrillation: Code(s): I48.0 - Paroxysmal atrial fibrillation Category: Medical (6) Foot pain, left: Code(s): M79.672 - Pain in left foot Category: Medical Plan - The patient is a 58-year-old female came in for follow-up appointment Patient have paroxysmal atrial fibrillation she is seeing [facility] and was started on flecainide Her rhythm is regular today Asthma is stable patient is on maintenance inhaler as well as rescue inhaler Major depression recurrent/anxiety: Patient is on fluoxetine 40 mg of fluoxetine, doing well presenting with left foot pain. - The pain began six months ago after a fall down the stairs and persists with intermittent throbbing. - There is no limping, but a conscious alteration in walking pattern to avoid exacerbating the pain. - The patient expresses concern about potential foot immobilization affecting work. - No skin abnormalities are present on the foot. - An x-ray was not conducted initially. - obesity: Semaglutide injection were rejected by the insurance company patient is having difficulty losing weight Medications - Albuterol: For respiratory symptoms, as needed. - Flecainide: For chronic atrial fibrillation through Cardiology - Fluoxetine: For depression or anxiety. - Hydrochlorothiazide: For hypertension or fluid retention. - Metoprolol: For hypertension or cardiac conditions. - Simvastatin: Not yet started, intended for hyperlipidemia management. Problem List - Prediabetes - High LDL Cholesterol - Left Foot Pain - Need for Simvastatin Therapy, medication was sent but patient has not started yet she was start soon - chronic atrial fibrillation - obesity - asthma moderate persistent Diagnostic results - Labs: Prediabetes reported from October lab results. - LDL cholesterol reported high. Patient Instructions - Proceed with obtaining the x-ray of the left foot. - Schedule an appointment with a seat joiner for further evaluation of the foot pain. - Monitor walking pattern and avoid changes that might affect body alignment. - Return for a follow-up in four months. - continue all other medications - labs to be done today and then again before next visit after starting simvastatin Orders: Orders 2 Comprehensive Met. Panel Today D50.9 - Iron deficiency anemia, unspecified, F33.0 - Major depressive disorder, recurrent, mild, I10 - Essential (primary) hypertension, I48.0 - Paroxysmal atrial fibrillation, J45.40 - Moderate persistent asthma, uncomplicated Complete Blood Count Auto Diff Today D50.9 - Iron deficiency anemia, unspecified, F33.0 - Major depressive disorder, recurrent, mild, I10 - Essential (primary) hypertension, I48.0 - Paroxysmal atrial fibrillation, J45.40 - Moderate persistent asthma, uncomplicated LDL Cholesterol Direct Today D50.9 - Iron deficiency anemia, unspecified, F33.0 - Major depressive disorder, recurrent, mild, I10 - Essential (primary) hypertension, I48.0 - Paroxysmal atrial fibrillation, J45.40 - Moderate persistent asthma, uncomplicated Referrals 2 Podiatry Referral M79.672 - Pain in left foot
== END 2024-06-11 09:02 | disposition home or self-care (01) ==
LOC: HO.HMCC 08:31
PROVIDERS: PCP Internal Medicine; Visit Provider Internal Medicine
DX: I10 Essential (primary) hypertension (principal); D50.9 Iron deficiency anemia, unspecified; F33.0 Major depressive disorder, recurrent, mild; J45.40 Moderate persistent asthma, uncomplicated; I48.0 Paroxysmal atrial fibrillation; M79.672 Pain in left foot

== ENCOUNTER 2024-06-11 08:31 | Outpatient (REF) | payer OTHER, SELFPAY ==
--- NOTE | ~2024-06-11 | XR_ITS ---
EXAMINATION: XR FOOT 3 OR MORE VIEWS LEFT HISTORY: M79.672 - Pain in left foot COMPARISON: There are no prior studies available for comparison. FINDINGS: Three views of the left foot are submitted. Osseous mineralization is normal. There is no fracture or dislocation. The joint spaces are preserved. There is a small plantar calcaneal spur. The soft tissues are unremarkable. XR/XR foot LT min 3V IMPRESSION: Small plantar calcaneal spur. Otherwise unremarkable examination of the left foot. Electronically signed by: Camilo Hernandez MD 06/11/2024 01:48 PM EDT
[2024-06-11 10:34] LABS: MANUAL DIFF FLAG NO
[2024-06-11 10:43] LABS: Basophils Percent Auto 0.4 % (0-2); Eosinophils Absolute Auto 0.3 X10*3/uL (0.0-0.4); Eosinophils Percent Auto 5.5 % (0-4); Hematocrit 35.9 % (37.0-47.0); Hemoglobin 11.6 g/dl (12.0-16.0); Imm Gran Abs Auto 0.01 X10*3/uL (0.00-0.03); Imm Gran Pct Auto 0.2 % (0.0-0.4); Lymphocytes Absolute Auto 1.3 X10*3/uL (1.2-4.9); Lymphocytes Percent Auto 25.4 % (20-40); Mean Corpuscular HGB Conc 32.3 g/dl (31.0-35.0); Mean Corpuscular Hemoglobin 26.9 pg (27.0-33.0); Mean Corpuscular Volume 83.1 fL (80.0-98.0); Mean Platelet Volume 9.5 fL (9.4-12.3); Monocytes Absolute Auto 0.6 X10*3/uL (0.1-1.2); Monocytes Percent Auto 11.7 % (2-11); Neutrophils Absolute Auto 2.9 x10*3/uL (2.0-8.3); Neutrophils Percent Auto 56.8 % (45-73); Platelet Count 277 X10*3/uL (160-400); Red Blood Count 4.32 X10*6/uL (4.20-5.50); Red Cell Distribution Width 14.4 % (11.0-16.0); White Blood Count 5.1 X10*3/uL (4.8-10.8)
[2024-06-11 11:33] LABS: Alanine Aminotransferase 15 U/L (0-31); Albumin Level 4.1 g/dL (3.5-5.0); Alkaline Phosphatase 83 U/L (39-117); Anion Gap 8 (12-20); Aspartate Amino Transferase 33 U/L (5-31); Bilirubin Total 0.3 mg/dL (0.0-1.0); Blood Urea Nitrogen 18 mg/dL (9-16); Calcium 9.3 mg/dL (8.4-10.2); Carbon Dioxide 27 mmol/L (22-29); Chloride 106 mmol/L (96-108); Estimated Glomerular Filt Rate > 60; Glucose Random 98 mg/dL (60-115); Potassium 3.3 mmol/L (3.3-5.1); Sodium 138 mmol/L (135-145); Total Protein 7.1 g/dL (6.5-8.0)
[2024-06-12 16:05] LABS: LDL Cholesterol Direct 134 mg/dL (<100)
== END 2024-06-11 08:32 | disposition home or self-care (01) ==
LOC: HO.HMGCX 08:31
PROVIDERS: PCP Internal Medicine; Visit Provider Internal Medicine
DX: I10 Essential (primary) hypertension (principal); D50.9 Iron deficiency anemia, unspecified; F33.0 Major depressive disorder, recurrent, mild; J45.40 Moderate persistent asthma, uncomplicated; I48.0 Paroxysmal atrial fibrillation; M79.672 Pain in left foot; Z79.899 Other long term (current) drug therapy
CPT/HCPCS: 36415; 73630; 80053; 83721; 85025; 96127; 99212

== ENCOUNTER → 2024-06-11 09:18 | Outpatient (BNV) | payer OTHER, SELFPAY | PROVIDERS: PCP Internal Medicine; Visit Provider Radiology Diagnostic Radiology | DX: M77.32 Calcaneal spur, left foot (principal); M79.672 Pain in left foot | CPT/HCPCS: 73630 ==

== ENCOUNTER 2024-10-11 07:24 | Outpatient (REF) | payer OTHER, SELFPAY | END 2024-10-11 07:25 | disposition home or self-care (01) | LOC: HO.MAMMO 07:24 | PROVIDERS: PCP Internal Medicine; Visit Provider Internal Medicine | DX: Z12.31 Encounter for screening mammogram for malignant neoplasm of breast (principal) | CPT/HCPCS: 77063; 77067 ==

== ENCOUNTER → 2024-10-11 07:30 | Outpatient (BNV) | payer OTHER, SELFPAY | PROVIDERS: PCP Internal Medicine; Visit Provider Internal Medicine | DX: Z12.31 Encounter for screening mammogram for malignant neoplasm of breast (principal) | CPT/HCPCS: 77063; 77067 ==

== ENCOUNTER 2024-11-05 08:26 | Outpatient (AMB) | payer OTHER, SELFPAY ==
[2024-11-05 08:29] VITALS: BP 122/80; PULSE 62; O2SAT 96; BMI 35.6
--- NOTE | 2024-11-05 08:29 | MHC.PC.OV ---
Vital Signs 11/05/24 08:29 Height 5 ft 5 in Weight 214 lb BMI 35.6 BP 122/80 Blood Pressure Location Lt brachial Position Sitting Pulse 62 Pulse Source Pulse Oximeter Pulse Oximetry (%) 96 Oxygen Delivery Method Room Air Intake Visit Reasons: 4m follow up Allergies Sulfa (Sulfonamide Antibiotics) (SULFA (SULFONAMIDE ANTIBIOTICS)) Allergy (Intermediate, Verified 11/05/24 08:29) RASH, rash, itching cyclobenzaprine (From Flexeril) Allergy (Unknown, Verified 11/05/24 08:29) worsens mood Medication List - Last Reconciled 11/05/24 by José Henriquez MD albuterol sulfate 90 mcg/actuation (ProAir HFA) 1 inh inhalation QID PRN 90 days aspirin (Adult Low Dose Aspirin) 81 mg PO DAILY calcium carbonate-vitamin D3 600 mg-10 mcg (400 unit) (Calcium 600 with Vitamin D3) 1 tab PO DAILY flecainide 100 mg PO Q12H fluoxetine 40 mg (2 x 20 mg) PO DAILY 90 days fluticasone propion-salmeterol 500-50 mcg/dose (Advair Diskus) 1 inh inhalation BID 90 days hydrochlorothiazide 25 mg PO DAILY 90 days metoprolol succinate ER 50 mg (1/2 x 100 mg) PO DAILY mg-lci-udgfi-calcium carb-K1 400 mcg-500 mg calcium-20 mcg (Women's 50 Plus Multivitamin) 1 tab PO DAILY Tobacco use date assessed: 06/11/24 Dental Screening Dental Screen Date: 06/11/24 HPI 4m follow up HPI Details Chief Complaint The patient presents with management of chronic conditions, including atrial fibrillation, lipid disorder, and obesity, with a need for medication coordination. History The patient is a 58-year-old female presenting with the management of chronic conditions. Atrial Fibrillation: - Patient is currently experiencing atrial fibrillation. - Continues medication management with flecainide. - Reported considering ablation surgery, but the current medication is effective. - No current blood thinners beyond aspirin. - Cardiac evaluation planned for next week. Lipid Disorder: - Ongoing management with statins is necessary. - Noted issues with pharmacy in filling prescription for statin. Obesity: - BMI is noted at 35.6. - Discussion around weight management included mention of Wegovy and insurance coverage challenges. - Recent insurance approval difficulties with prior authorization for medication. Asthma: - Current status stable with medication. Anemia: - Previously noted slight anemia and a need for follow-up lab tests. Liver Enzyme Issues: - A previous finding of an abnormal liver enzyme necessitates monitoring. Medical History: - Atrial fibrillation - Lipid disorder - Obesity - Asthma - High blood pressure - Depression and anxiety Medications: - Flecainide 100 mg for atrial fibrillation. - Fluoxetine 40 mg for depression. - Advair for asthma management. - Hydrochlorothiazide 25 mg for high blood pressure. - Metoprolol 50 mg for high blood pressure. - Atorvastatin 20 mg for lipid disorder. - Aspirin for anticoagulation. Problem List - Atrial Fibrillation - Hypertension - Lipid Disorder - Obesity - Asthma - Depression Diagnostic results - Labs: Hemoglobin previously noted as slightly low. - Liver Enzymes: Previously found to be abnormal. Patient Instructions - Schedule blood tests to recheck hemoglobin and liver enzymes. - Coordinate with the preferred pharmacy regarding prescriptions. - Monitor weight and report any side effects of medications. - Follow-up on cardiac health. Follow up with me in 4 months Review of Systems General: No fever no chills neurological: No headaches no dizziness ear nose throat: No sore throat no hearing difficulty no ear pain cardiovascular: No syncope, no chest pain gastrointestinal: No nausea vomiting or diarrhea endocrine: No polyuria polydipsia no heat intolerance genitourinary: No dysuria skin: No new complaints Physical Exam general: No acute distress HEENT: No acute findings neck: Supple respiratory system: Able to talk in full sentences, no audible wheeze, no stridor cardiovascular: S1-S2 RRR, heart is regular, lungs are clear gastrointestinal: No pain extremities: No new findings WEB FEEDER: Alert, awake, oriented x3, motor sensory intact skin: Normal turgor [facility] Medical History Encounter for well woman exam with routine gynecological exam Obesity Depression, major, recurrent Iron deficiency anemia Tension headache Asthma Hypertension, essential Surgical History H/O shoulder surgery History of laparoscopy History of tonsillectomy History of bilateral breast reduction surgery Family History Mother Unknown family medical history Unknown Adopted Social History Household Members: Spouse and Children Housing: House Alcohol intake: never Patient Tobacco Use Status: Never used Tobacco e-Cigarette/Vaping Use: Never Used Second Hand Smoke Exposure: No service: No Current occupational status: employed 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 Sexual orientation: Straight/Heterosexual Gender identity: Female Cognitive needs: No Hearing needs: No Vision needs: Yes Female Reproductive History Menstrual Age of Menarche: 13 Questionnaire Thrive Questionnaire Date Thrive assessed: 06/04/24 I am a: Patient What is your living situation today?: I have a steady place to live Within the past 12 months, did the food you bought not last and you didn't have the money to get more?: Never true Within the past 12 months, did you worry whether your food would run out before you got money to buy more?: Never true Do you have trouble paying for medicines?: No Do you have trouble getting transportation to medical appointments?: No Do you have trouble paying your heating and electricity bill?: No Do you have trouble taking care of your child, family member or friend?: No Do you have trouble with day-to-day activities such as bathing, preparing meals, shopping, managing finances, etc.?: No Are you currently unemployed and looking for a job?: No Are you interested in more education?: No Please select the resources that you would like help with: None Currently or been in a relationship where the following occur: No concerns reported THRIVE Score: 0 AUDIT C Alcohol Use Questionnaire (AUDIT-C) 1. How often do you have a drink containing alcohol?: Never 3. How often do you have six or more drinks on one occasion?: Never Total Score: 0 Score Reviewed/Action Taken: Yes IRIS-7 AMB Questionnaire IRIS-7 Date IRIS - 7 assessed: 06/11/24 Source: Developed by Drs. Camilo Dsouza, Sun Blandon, Sheldon Bean and colleagues, with an educational chepe from [employer]. Physical exam (Primary Care) Vital Signs: Last Vital Signs Pulse 62 11/05/24 08:29 BP 122/80 11/05/24 08:29 Pulse Ox 96 11/05/24 08:29 Oxygen Delivery Method Room Air 11/05/24 08:29 BMI result Body Mass Index 35.6 Tobacco/Smoking Status: Tobacco use Status Tobacco use date assessed 06/11/24 11/05/24 08:32 Patient Tobacco Use Status Never used Tobacco 11/05/24 08:32 e-Cigarette/Vaping Use Never Used 11/05/24 08:32 Thrive Assessment: Date of Thrive Assessment Date Thrive assessed 06/04/24 11/05/24 08:32 Currently or been in a relationship where the following occur: No concerns reported Coding Level of Care Code Est Pt Level 4 (08176) Diagnoses Hypertension, essential I10 Paroxysmal atrial fibrillation I48.0 Moderate persistent asthma without complication J45.40 Asthma complication type: uncomplicated Mild episode of recurrent major depressive disorder F33.0 Active/Remission status: currently active Major depression episode severity: mild Anemia in other chronic diseases classified elsewhere D63.8 Other causes of anemia: chronic disease, other Anemia type: other cause LFT elevation R79.89 Lipid disorder E78.9 Class 2 severe obesity due to excess calories with serious comorbidity and body mass index (BMI) of 36.0 to 36.9 in adult E66.01; Z68.36 Body mass index: BMI 36.0-36.9 Obesity classification: adult class 2 (BMI 35 - 39.9) Serious obesity comorbidity presence: with serious comorbidity Assessment & Plan Assessment & Plan (1) Hypertension, essential: Code(s): I10 - Essential (primary) hypertension Category: Medical (2) Paroxysmal atrial fibrillation: Code(s): I48.0 - Paroxysmal atrial fibrillation Category: Medical (3) Asthma, moderate persistent: Code(s): J45.40 - Moderate persistent asthma, uncomplicated Category: Medical Qualifiers: Asthma complication type: uncomplicated Qualified Code(s): J45.40 - Moderate persistent asthma, uncomplicated (4) Depression, major, recurrent: Code(s): F33.9 - Major depressive disorder, recurrent, unspecified Category: Medical Qualifiers: Active/Remission status: currently active Major depression episode severity: mild Qualified Code(s): F33.0 - Major depressive disorder, recurrent, mild (5) Anemia: Code(s): D64.9 - Anemia, unspecified Category: Medical Qualifiers: Other causes of anemia: chronic disease, other Anemia type: other cause Qualified Code(s): D63.8 - Anemia in other chronic diseases classified elsewhere (6) LFT elevation: Code(s): R79.89 - Other specified abnormal findings of blood chemistry Category: Medical (7) Lipid disorder: Code(s): E78.9 - Disorder of lipoprotein metabolism, unspecified Category: Medical (8) Obesity due to excess calories: Code(s): E66.09 - Other obesity due to excess calories Category: Medical Qualifiers: Body mass index: BMI 36.0-36.9 Obesity classification: adult class 2 (BMI 35 - 39.9) Serious obesity comorbidity presence: with serious comorbidity Qualified Code(s): E66.01 - Morbid (severe) obesity due to excess calories; Z68.36 - Body mass index [BMI] 36.0-36.9, adult Plan Chief Complaint The patient presents with management of chronic conditions, including atrial fibrillation, lipid disorder, and obesity, with a need for medication coordination. History The patient is a 58-year-old female presenting with the management of chronic conditions. Atrial Fibrillation: - Patient is currently experiencing atrial fibrillation. - Continues medication management with flecainide. - Reported considering ablation surgery, but the current medication is effective. - No current blood thinners beyond aspirin. - Cardiac evaluation planned for next week. Lipid Disorder: - Ongoing management with statins is necessary. - Noted issues with pharmacy in filling prescription for statin. Obesity: - BMI is noted at 35.6. - Discussion around weight management included mention of Wegovy and insurance coverage challenges. - Recent insurance approval difficulties with prior authorization for medication. Asthma: - Current status stable with medication. Anemia: - Previously noted slight anemia and a need for follow-up lab tests. Liver Enzyme Issues: - A previous finding of an abnormal liver enzyme necessitates monitoring. Medical History: - Atrial fibrillation - Lipid disorder - Obesity - Asthma - High blood pressure - Depression and anxiety Medications: - Flecainide 100 mg for atrial fibrillation. - Fluoxetine 40 mg for depression. - Advair for asthma management. - Hydrochlorothiazide 25 mg for high blood pressure. - Metoprolol 50 mg for high blood pressure. - Atorvastatin 20 mg for lipid disorder. - Aspirin for anticoagulation. Problem List - Atrial Fibrillation - Hypertension - Lipid Disorder - Obesity - Asthma - Depression Diagnostic results - Labs: Hemoglobin previously noted as slightly low. - Liver Enzymes: Previously found to be abnormal. Patient Instructions - Schedule blood tests to recheck hemoglobin and liver enzymes. - Coordinate with the preferred pharmacy regarding prescriptions. - Monitor weight and report any side effects of medications. - Follow-up on cardiac health. - start semaglutide injection lower dose, once prescription picked up give us a call so we can set you up for 4 weeks follow up Follow up with me in 4 months Orders: Orders Hematocrit Today D64.9 - Anemia, unspecified, E66.01 - Morbid (severe) obesity due to excess calories, E78.9 - Disorder of lipoprotein metabolism, unspecified, F33.0 - Major depressive disorder, recurrent, mild, I10 - Essential (primary) hypertension, I48.0 - Paroxysmal atrial fibrillation, J45.40 - Moderate persistent asthma, uncomplicated, R79.89 - Other specified abnormal findings of blood chemistry, Z68.36 - Body mass index [BMI] 36.0-36.9, adult Ferritin Today D64.9 - Anemia, unspecified, E66.01 - Morbid (severe) obesity due to excess calories, E78.9 - Disorder of lipoprotein metabolism, unspecified, F33.0 - Major depressive disorder, recurrent, mild, I10 - Essential (primary) hypertension, I48.0 - Paroxysmal atrial fibrillation, J45.40 - Moderate persistent asthma, uncomplicated, R79.89 - Other specified abnormal findings of blood chemistry, Z68.36 - Body mass index [BMI] 36.0-36.9, adult Amylase Today E66.01 - Morbid (severe) obesity due to excess calories, Z68.36 - Body mass index [BMI] 36.0-36.9, adult Lipase Today E66.01 - Morbid (severe) obesity due to excess calories, Z68.36 - Body mass index [BMI] 36.0-36.9, adult TSH reflex Free T4 Today E66.01 - Morbid (severe) obesity due to excess calories, Z68.36 - Body mass index [BMI] 36.0-36.9, adult Hemoglobin Today D64.9 - Anemia, unspecified, E66.01 - Morbid (severe) obesity due to excess calories, E78.9 - Disorder of lipoprotein metabolism, unspecified, F33.0 - Major depressive disorder, recurrent, mild, I10 - Essential (primary) hypertension, I48.0 - Paroxysmal atrial fibrillation, J45.40 - Moderate persistent asthma, uncomplicated, R79.89 - Other specified abnormal findings of blood chemistry, Z68.36 - Body mass index [BMI] 36.0-36.9, adult Comprehensive Met. Panel Today D64.9 - Anemia, unspecified, E66.01 - Morbid (severe) obesity due to excess calories, E78.9 - Disorder of lipoprotein metabolism, unspecified, F33.0 - Major depressive disorder, recurrent, mild, I10 - Essential (primary) hypertension, I48.0 - Paroxysmal atrial fibrillation, J45.40 - Moderate persistent asthma, uncomplicated, R79.89 - Other specified abnormal findings of blood chemistry, Z68.36 - Body mass index [BMI] 36.0-36.9, adult Medications: New semaglutide for 4 weeks 0.25 mg (0.368 mL) subcut QWEEK 2 mL 0RF 30 days E66.01 - Morbid (severe) obesity due to excess calories, E78.9 - Disorder of lipoprotein metabolism, unspecified, I10 - Essential (primary) hypertension, I48.0 - Paroxysmal atrial fibrillation, Z68.36 - Body mass index [BMI] 36.0-36.9, adult Refilled simvastatin 20 mg PO DAILY 90 tabs 0RF
== END 2024-11-05 08:47 | disposition home or self-care (01) ==
LOC: HO.HMCC 08:26
PROVIDERS: PCP Internal Medicine; Visit Provider Internal Medicine
DX: I10 Essential (primary) hypertension (principal); I48.0 Paroxysmal atrial fibrillation; E66.01 Morbid (severe) obesity due to excess calories; Z68.36 Body mass index [BMI] 36.0-36.9, adult; J45.40 Moderate persistent asthma, uncomplicated; F33.0 Major depressive disorder, recurrent, mild; D63.8 Anemia in other chronic diseases classified elsewhere; R79.89 Other specified abnormal findings of blood chemistry; E78.9 Disorder of lipoprotein metabolism, unspecified

== ENCOUNTER 2024-11-05 08:26 | Outpatient (REF) | payer OTHER, SELFPAY ==
[2024-11-05 09:54] LABS: Hematocrit 35.9 % (37.0-47.0); Hemoglobin 11.5 g/dl (12.0-16.0)
[2024-11-05 10:37] LABS: Alanine Aminotransferase 18 U/L (0-31); Albumin Level 4.4 g/dL (3.5-5.0); Alkaline Phosphatase 81 U/L (39-117); Amylase 55 U/L (28-100); Anion Gap 12 (12-20); Aspartate Amino Transferase 26 U/L (5-31); Blood Urea Nitrogen 16 mg/dL (9-16); Calcium 9.2 mg/dL (8.4-10.2); Carbon Dioxide 27 mmol/L (22-29); Chloride 103 mmol/L (96-108); Estimated Glomerular Filt Rate > 60; Lipase 32 U/L (8-78); Potassium 3.5 mmol/L (3.3-5.1); Sodium 138 mmol/L (135-145); Total Protein 7.1 g/dL (6.5-8.0)
[2024-11-05 10:43] LABS: Ferritin 11 ng/mL (10-250)
== END 2024-11-05 08:27 | disposition home or self-care (01) ==
LOC: HO.HMGCLDS 08:26
PROVIDERS: PCP Internal Medicine; Visit Provider Internal Medicine
DX: R79.89 Other specified abnormal findings of blood chemistry (principal); I10 Essential (primary) hypertension; I48.0 Paroxysmal atrial fibrillation; D63.8 Anemia in other chronic diseases classified elsewhere; E78.9 Disorder of lipoprotein metabolism, unspecified; F33.0 Major depressive disorder, recurrent, mild; E66.01 Morbid (severe) obesity due to excess calories; J45.40 Moderate persistent asthma, uncomplicated; Z79.82 Long term (current) use of aspirin; Z79.899 Other long term (current) drug therapy; Z68.35 Body mass index [BMI] 35.0-35.9, adult
CPT/HCPCS: 36415; 80053; 82150; 82728; 83690; 84443; 85014; 85018; 99212

== ENCOUNTER 2024-12-17 08:15 | Outpatient (AMB) | payer OTHER, SELFPAY ==
--- NOTE | 2024-12-17 08:17 | A.OFFPC_ITS ---
Vital Signs 12/17/24 08:18 Height 5 ft 5 in Weight 209 lb BMI 34.8 BP 126/78 Blood Pressure Location Rt brachial Position Sitting Pulse 84 Pulse Source Pulse Oximeter Pulse Oximetry (%) 99 Intake Visit Reasons: Medication Review Allergies Sulfa (Sulfonamide Antibiotics) (SULFA (SULFONAMIDE ANTIBIOTICS)) Allergy (Intermediate, Verified 12/17/24 08:18) RASH, rash, itching cyclobenzaprine (From Flexeril) Allergy (Unknown, Verified 12/17/24 08:18) worsens mood Medication List - Last Reconciled 12/17/24 by José Henriquez MD albuterol sulfate 90 mcg/actuation (ProAir HFA) 1 inh inhalation QID PRN 90 days aspirin (Adult Low Dose Aspirin) 81 mg PO DAILY calcium carbonate-vitamin D3 600 mg-10 mcg (400 unit) (Calcium 600 with Vitamin D3) 1 tab PO DAILY flecainide 100 mg PO Q12H fluoxetine 40 mg (2 x 20 mg) PO DAILY 90 days fluticasone propion-salmeterol 500-50 mcg/dose (Advair Diskus) 1 inh inhalation BID 90 days hydrochlorothiazide 25 mg PO DAILY 90 days metoprolol succinate ER 50 mg (1/2 x 100 mg) PO DAILY [id number] [id number] 400 mcg-500 mg calcium-20 mcg (Women's 50 Plus Multivitamin) 1 tab PO DAILY simvastatin 20 mg PO DAILY Wegovy (semaglutide (weight loss)) 0.25 mg (0.5 mL) subcut QWEEK NS Tobacco use date assessed: 06/11/24 Dental Screening Dental Screen Date: 06/11/24 HPI Medication Review HPI Details History The patient is a 58-year-old female presenting for a follow-up appointment. Weight management: - Patient is on a weight loss medication , Wegovy (0.25 mg). - Weight in October 214 lbs, current wei ht is 209 lbs. - Reports fluctuations in weight between 214 and 209 lbs. - Side effects in the initial four days post-injection included severe nausea and sulfur burping; ongoing occasional nausea, mostly the day after the injection, and manageable constipation. - Patient is managing caloric intake and acknowledges insufficient exercise; indicates intention to improve exercise routine. Atrial fibrillation management: - Established with cardiology for persis tent atrial fibrillation; currently taking flecainide and metoprolol. - Plans for ablation surgery at the end of the month; expects to reduce medication post-procedure. - Only taking aspirin currently; Eliquis to be initiated two weeks prior to surgery. - Reports occasional episodes of arrhyth camila detectable via home monitoring devices. Anxiety: - Currently managed with fluoxetine; rep orts stability in anxiety levels. Asthma: - Managed with inhalable albuterol for b reakthrough shortness of breath. And Advair as a maintenance inhaler - Reports satisfactory asthma control wi th no recent episodes of shortness of breath. Medical History: - Atrial fibrillation - Hypertension - Asthma - Anxiety Medications: - Flecainide for atrial fibrillation - Metoprolol for atrial fibrillation - Aspirin for atrial fibrillation - Wegovy 0.25 mg for weight loss - Albuterol inhaler for asthma - Fluoxetine for anxiety - Simvastatin 20 mg for lipid control Social History: - Reports challenges with exercise but i ntends to improve. - Actively managing caloric intake for w eight control. Problem List - Persistent Atrial Fibrillation - Hypertension - Asthma - Anxiety - Obesity Diagnostic results - Labs: Normal electrolytes, kidney func tion, liver enzymes, amylase, lipase, and thyroid as of October. [facility] of Care - Managed by cardiology for atrial fibri llation. - Primary care provider responsible for anxiety and asthma management. Plan - Wegovy 0.25 mg will continue for weigh t management due to efficacy with awareness of manageable side effects. - Maintain current dosage of flecainide and metoprolol until postoperative ablation evaluation determines medication adjustments. - Begin Eliquis two weeks prior to ablat ion; discontinue Wegovy one week before surgery for optimal surgical preparation. - Continue fluoxetine for stable anxiety management. - Asthma to be managed with the current use of albuterol inhaler; and Advair, no changes needed. - Encourage increased exercise and ni nue caloric intake monitoring for obesity management. Follow-up 3 months Review of Systems General: No fever no chills neurological: No headaches no dizziness ear nose throat: No sore throat no hearing difficulty no ear pain cardiovascular: No syncope, no chest pain, no palpitations gastrointestinal: No nausea vomiting or diarrhea endocrine: No polyuria polydipsia no heat intolerance genitourinary: No dysuria skin: No new complaints Physical Exam general: No acute distress HEENT: No acute findings neck: Supple respiratory system: Able to talk in full sentences, no audible wheeze, no stridor cardiovascular: S1-S2 RRR gastrointestinal: No pain extremities: No new findings 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, 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, 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 x3, motor sensory intact skin: Normal turgor [facility] Medical History Encounter for well woman exam with routine gynecological exam Obesity Depression, major, recurrent Iron deficiency anemia Tension headache Asthma Hypertension, essential Surgical History H/O shoulder surgery History of laparoscopy History of tonsillectomy History of bilateral breast reduction surgery Family History Mother Unknown family medical history Unknown Adopted Social History Household Members: Spouse and Children Housing: House Alcohol intake: never Patient Tobacco Use Status: Never used Tobacco e-Cigarette/Vaping Use: Never Used Second Hand Smoke Exposure: No service: No Current occupational status: employed 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 Sexual orientation: Straight/Heterosexual Gender identity: Female Cognitive needs: No Hearing needs: No Vision needs: Yes Female Reproductive History Menstrual Age of Menarche: 13 Questionnaire Thrive Questionnaire Date Thrive assessed: 06/04/24 I am a: Patient What is your living situation today?: I have a steady place to live Within the past 12 months, did the food you bought not last and you didn't have the money to get more?: Never true Within the past 12 months, did you worry whether your food would run out before you got money to buy more?: Never true Do you have trouble paying for medicines?: No Do you have trouble getting transportation to medical appointments?: No Do you have trouble paying your heating and electricity bill?: No Do you have trouble taking care of your child, family member or friend?: No Do you have trouble with day-to-day activities such as bathing, preparing meals, shopping, managing finances, etc.?: No Are you currently unemployed and looking for a job?: No Are you interested in more education?: No Please select the resources that you would like help with: None Currently or been in a relationship where the following occur: No concerns reported THRIVE Score: 0 IRIS-7 AMB Questionnaire IRIS-7 Date IRIS - 7 assessed: 06/11/24 Source: Developed by Drs. Camilo Dsouza, Sun Blandon, Sheldon Bean and colleagues, with an educational chepe from [employer]. Physical exam (Primary Care) Vital Signs: Last Vital Signs Pulse 84 12/17/24 08:18 BP 126/78 12/17/24 08:18 Pulse Ox 99 12/17/24 08:18 BMI result Body Mass Index 34.8 Tobacco/Smoking Status: Tobacco use Status Tobacco use date assessed 06/11/24 12/17/24 08:19 Patient Tobacco Use Status Never used Tobacco 12/17/24 08:19 e-Cigarette/Vaping Use Never Used 12/17/24 08:19 Thrive Assessment: Date of Thrive Assessment Date Thrive assessed 06/04/24 12/17/24 08:19 Currently or been in a relationship where the following occur: No concerns reported Coding Level of Care Code Est Pt Level 4 (13785) Diagnoses Hypertension, essential I10 Paroxysmal atrial fibrillation I48.0 Moderate persistent asthma without complication J45.40 Asthma complication type: uncomplicated Mild episode of recurrent major depressive disorder F33.0 Active/Remission status: currently active Major depression episode severity: mild Lipid disorder E78.9 Class 2 severe obesity due to excess calories with serious comorbidity and body mass index (BMI) of 36.0 to 36.9 in adult E66.01; Z68.36 Obesity classification: adult class 2 (BMI 35 - 39.9) Serious obesity comorbidity presence: with serious comorbidity Body mass index: BMI 36.0-36.9 Assessment & Plan Assessment & Plan (1) Hypertension, essential: Code(s): I10 - Essential (primary) hypertension Category: Medical (2) Paroxysmal atrial fibrillation: Code(s): I48.0 - Paroxysmal atrial fibrillation Category: Medical (3) Asthma, moderate persistent: Code(s): J45.40 - Moderate persistent asthma, uncomplicated Category: Medical Qualifiers: Asthma complication type: uncomplicated Qualified Code(s): J45.40 - Moderate persistent asthma, uncomplicated (4) Depression, major, recurrent: Code(s): F33.9 - Major depressive disorder, recurrent, unspecified Category: Medical Qualifiers: Active/Remission status: currently active Major depression episode sev erity: mild Qualified Code(s): F33.0 - Major depressive disorder, recurrent, mild (5) Lipid disorder: Code(s): E78.9 - Disorder of lipoprotein metabolism, unspecified Category: Medical (6) Obesity due to excess calories: Code(s): E66.09 - Other obesity due to excess calories Category: Medical Qualifiers: Obesity classification: adult class 2 (BMI 35 - 39.9) Serious obesity comorbidity presence: with serious comorbidity Body mass index: BMI 36.0-36.9 Qualified Code(s): E66.01 - Morbid (severe) obesity due to excess calories; Z68.36 - Body mass index [BMI] 36.0-36.9, adult Plan History The patient is a 58-year-old female presenting for a follow-up appointment. Weight management: - Patient is on a weight loss medication, Wegovy (0.25 mg). - Weight in October 214 lbs, current weight is 209 lbs. - Reports fluctuations in weight between 214 and 209 lbs. - Side effects in the initial four days post-injection included severe nausea and sulfur burping; ongoing occasional nausea, mostly the day after the injection, and manageable constipation. - Patient is managing caloric intake and acknowledges insufficient exercise; indicates intention to improve exercise routine. Atrial fibrillation management: - Established with cardiology for persistent atrial fibrillation; currently taking flecainide and metoprolol. - Plans for ablation surgery at the end of the month; expects to reduce medication post-procedure. - Only taking aspirin currently; Eliquis to be initiated two weeks prior to surgery. - Reports occasional episodes of arrhythmia detectable via home monitoring devices. Anxiety: - Currently managed with fluoxetine; reports stability in anxiety levels. Asthma: - Managed with inhalable albuterol for breakthrough shortness of breath. And Advair as a maintenance inhaler - Reports satisfactory asthma control with no recent episodes of shortness of breath. Medical History: - Atrial fibrillation - Hypertension - Asthma - Anxiety Medications: - Flecainide for atrial fibrillation - Metoprolol for atrial fibrillation - Aspirin for atrial fibrillation - Wegovy 0.25 mg for weight loss - Albuterol inhaler for asthma - Fluoxetine for anxiety - Simvastatin 20 mg for lipid control Social History: - Reports challenges with exercise but intends to improve. - Actively managing caloric intake for weight control. Problem List - Persistent Atrial Fibrillation - Hypertension - Asthma - Anxiety - Obesity Diagnostic results - Labs: Normal electrolytes, kidney function, liver enzymes, amylase, lipase, and thyroid as of October. Pet[facility] of Care - Managed by cardiology for atrial fibrillation. - Primary care provider responsible for anxiety and asthma management. Plan - Wegovy 0.25 mg will continue for weight management due to efficacy with awaren ess of manageable side effects. - Maintain current dosage of flecainide and metoprolol until postoperative ablation evaluation determines medication adjustments. - Begin Eliquis two weeks prior to ablation; discontinue Wegovy one week before surgery for optimal surgical preparation. - Continue fluoxetine for stable anxiety management. - Asthma to be managed with the current use of albuterol inhaler; and Advair, no changes needed. - Encourage increased exercise and continue caloric intake monitoring for obesity management. Follow-up 3 months Medications: Refilled Wegovy (semaglutide (weight loss)) administer weeks 1 through 4 of therapy 0.25 mg (0.5 mL) subcut QWEEK 2 mL 2RF NS E66.01 - Morbid (severe) obesity due to excess calories, E78.9 - Disorder of lipoprotein metabolism, unspecified, I10 - Essential (primary) hypertension, I48.0 - Paroxysmal atrial fibrillation, Z68.36 - Body mass index [BMI] 36.0-36.9, adult
[2024-12-17 08:18] VITALS: BP 126/78; PULSE 84; O2SAT 99; BMI 34.8
== END 2024-12-17 08:43 | disposition home or self-care (01) ==
LOC: HO.HMCC 08:15
PROVIDERS: PCP Internal Medicine; Visit Provider Internal Medicine
DX: I10 Essential (primary) hypertension (principal); I48.0 Paroxysmal atrial fibrillation; E66.01 Morbid (severe) obesity due to excess calories; Z68.36 Body mass index [BMI] 36.0-36.9, adult; F33.0 Major depressive disorder, recurrent, mild; J45.40 Moderate persistent asthma, uncomplicated; E78.9 Disorder of lipoprotein metabolism, unspecified

== ENCOUNTER → 2024-12-17 08:15 | Outpatient (BNVA) | payer OTHER, SELFPAY | PROVIDERS: PCP Internal Medicine; Visit Provider Internal Medicine | DX: I10 Essential (primary) hypertension (principal); I48.0 Paroxysmal atrial fibrillation; J45.40 Moderate persistent asthma, uncomplicated; F33.0 Major depressive disorder, recurrent, mild; E78.9 Disorder of lipoprotein metabolism, unspecified; E66.01 Morbid (severe) obesity due to excess calories; Z68.36 Body mass index [BMI] 36.0-36.9, adult; Z79.82 Long term (current) use of aspirin; Z79.899 Other long term (current) drug therapy | CPT/HCPCS: 99212 ==

== ENCOUNTER 2025-02-11 10:20 | Outpatient (AMB) | payer OTHER, SELFPAY ==
[2025-02-11 10:23] VITALS: BP 120/80; PULSE 80; O2SAT 97; BMI 32.6
--- NOTE | 2025-02-11 10:23 | A.OFFPC_ITS ---
Vital Signs 02/11/25 10:23 Height 5 ft 5 in Weight 196 lb BMI 32.6 BP 120/80 Blood Pressure Location Lt brachial Position Sitting Pulse 80 Pulse Source Pulse Oximeter Pulse Oximetry (%) 97 Oxygen Delivery Method Room Air Intake Visit Reasons: Annual PE Allergies Sulfa (Sulfonamide Antibiotics) (SULFA (SULFONAMIDE ANTIBIOTICS)) Allergy (Intermediate, Verified 02/11/25 10:23) RASH, rash, itching cyclobenzaprine (From Flexeril) Allergy (Unknown, Verified 02/11/25 10:23) worsens mood Medication List - Last Reconciled 02/11/25 by José Henriquez MD albuterol sulfate 90 mcg/actuation (ProAir HFA) 1 inh inhalation QID PRN 90 days apixaban (Eliquis) 5 mg PO BID aspirin (Adult Low Dose Aspirin) 81 mg PO DAILY calcium carbonate-vitamin D3 600 mg-10 mcg (400 unit) (Calcium 600 with Vitamin D3) 1 tab PO DAILY flecainide 100 mg PO Q12H fluoxetine 40 mg (2 x 20 mg) PO DAILY 90 days fluticasone propion-salmeterol 500-50 mcg/dose (Advair Diskus) 1 inh inhalation BID 90 days hydrochlorothiazide 25 mg PO DAILY 90 days metoprolol succinate ER 50 mg (1/2 x 100 mg) PO DAILY pz-jug-agdaq-calcium carb-K1 400 mcg-500 mg calcium-20 mcg (Women's 50 Plus Multivitamin) 1 tab PO DAILY simvastatin 20 mg PO DAILY Wegovy (semaglutide (weight loss)) 0.25 mg (0.5 mL) subcut QWEEK NS Tobacco use date assessed: 06/11/24 Dental Screening Dental Screen Date: 06/11/24 HPI HPI Comments History of Present Illness Details History of Present Illness The patient is a 59 year old femalel presenting for a physical exam. Atrial fibrillation: - The patient has a history of atrial fi brillation, for which an ablation was performed. - The patient is taking flecainide and w ill continue until the next cardiology appointment. - The patient has converted back to a re gular rhythm and no longer feels the prior sensation of palpitations. - The patient also takes Eliquis and met oprolol for this condition. Obesity: - The patient is taking Wegovy 0.25 mg f or weight management and is ready for the next dosage level. - The patient's weight has decreased to 196 lbs from 209 lbs, with a current BMI of 32.6. - No problems with the injections have b een reported. Hypertension: - The patient is taking hydrochlorothiaz lowell and metoprolol for blood pressure management. - Blood pressure today was 120/80 mmHg, indicating good control. Hyperlipidemia: - The patient is managed on simvastatin for cholesterol. - A recent lab panel showed an LDL of 13 4. Asthma: - The patient takes Advair for asthma. - Breathing is reported as stable with n o recent flare-ups. Mood Disorder: - The patient is taking fluoxetine 40 mg for mood, which is reported to be stable. Health Maintenance: - Mammogram was completed in October of t his year. - The patient's last colonoscopy was behzad e years ago, with the next one due next year. 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 The patient is currently unemployed. - Weight management: The patient is acti vely engaged in weight loss with Wegovy, showing a decrease from 209 lbs to 196 lbs. Current BMI is 32.6. Health Maintenance - Annual physical exam performed. - Breast cancer screening: Mammogram was done in October of this year. 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 - Colon cancer screening: Last colonosco py was nine years ago and is due next year. - Vaccinations: Has received an influenz a vaccine. 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 Medications - Eliquis - Aspirin - Flecainide for post-ablation care - Fluoxetine 40 mg for mood - Advair for asthma - Hydrochlorothiazide for blood pressure - Metoprolol for heart and blood pressur e - Simvastatin for cholesterol - Wegovy 0.25 mg for weight loss [facility] Medical History Encounter for well woman exam with routine gynecological exam Obesity Depression, major, recurrent Iron deficiency anemia Tension headache Asthma Hypertension, essential Surgical History H/O shoulder surgery History of laparoscopy History of tonsillectomy History of bilateral breast reduction surgery Family History Mother Unknown family medical history Unknown Adopted Social History Household Members: Spouse and Children Housing: House Alcohol intake: never Patient Tobacco Use Status: Never used Tobacco e-Cigarette/Vaping Use: Never Used Second Hand Smoke Exposure: No service: No Current occupational status: employed 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 Sexual orientation: Straight/Heterosexual Gender identity: Female Cognitive needs: No Hearing needs: No Vision needs: Yes Female Reproductive History Menstrual Age of Menarche: 13 Questionnaire Thrive Questionnaire Date Thrive assessed: 06/04/24 I am a: Patient What is your living situation today?: I have a steady place to live Within the past 12 months, did the food you bought not last and you didn't have the money to get more?: Never true Within the past 12 months, did you worry whether your food would run out before you got money to buy more?: Never true Do you have trouble paying for medicines?: No Do you have trouble getting transportation to medical appointments?: No Do you have trouble paying your heating and electricity bill?: No Do you have trouble taking care of your child, family member or friend?: No Do you have trouble with day-to-day activities such as bathing, preparing meals, shopping, managing finances, etc.?: No Are you currently unemployed and looking for a job?: No Are you interested in more education?: No Please select the resources that you would like help with: None Currently or been in a relationship where the following occur: No concerns reported THRIVE Score: 0 IRIS-7 AMB Questionnaire IRIS-7 Date IRIS - 7 assessed: 06/11/24 Source: Developed by Drs. Camilo Dsouza, Sun Blandon, Sheldon Bean and colleagues, with an educational chepe from [employer]. Review of Systems Narrative Review of Systems - General: No fever no chills - Neurological: No headaches no dizziness - Ear nose throat: No sore throat no hearing difficulty no ear pain - Cardiovascular: No syncope, no chest pain, no palpitations - Gastrointestinal: No nausea vomiting or diarrhea - Endocrine: No polyuria polydipsia no heat intolerance - Genitourinary: No dysuria - Skin: No new complaints Physical exam (Primary Care) Vital Signs: Last Vital Signs Pulse 80 02/11/25 10:23 BP 120/80 02/11/25 10:23 Pulse Ox 97 02/11/25 10:23 Oxygen Delivery Method Room Air 02/11/25 10:23 BMI result Body Mass Index 32.6 Tobacco/Smoking Status: Tobacco use Status Tobacco use date assessed 06/11/24 02/11/25 10:27 Patient Tobacco Use Status Never used Tobacco 02/11/25 10:27 e-Cigarette/Vaping Use Never Used 02/11/25 10:27 Thrive Assessment: Date of Thrive Assessment Date Thrive assessed 06/04/24 02/11/25 10:27 Currently or been in a relationship where the following occur: No concerns reported Narrative Diagnostic results - Vitals: Blood pressure is 120/80 mmHg. - Labs (June): CBC and metabolic profile were reviewed; electrolytes, kidney function, and liver enzymes were good. - Labs (June): LDL was 134. - Labs (June): Amylase, lipase, and thyroid function were normal. - Labs (October): Hemoglobin was checked. - Imaging: A mammogram was completed in October of this year. Physical Exam General: Cooperative, healthy appearing, comfortable, no acute distress Orientation: Patient oriented x3 Limitations:none Head: Normal to inspection Ears: Within normal limit visually Nose: Normal external nose present Face and sinus: Normal facial exam Eyes: Appearance normal, extraocular movement intact pupils reactive Neck: Normal visual inspection and supple Respiratory: Normal respiratory effort and able to speak in complete sentences. Clear to auscultation, no stridor Cardiovascular: S1 and S2 RRR, regular rhythm Breast exam thru Obgyn GI: Normal to inspection. Soft to palpation and nontender Skin: Turgor normal, no acute findings Neuro: Patient oriented x3, motor sensory intact, balance intact, tandem pass Extremities: Normal to inspection, full ROM intact . Coding Level of Care Code Est Pt Level 3 (52910) Est Pt Prev Care 40-64y(89610) Diagnoses Encounter for general adult medical examination with abnormal findings Z00.01 Moderate persistent asthma without complication J45.40 Asthma complication type: uncomplicated Class 2 severe obesity due to excess calories with serious comorbidity and body mass index (BMI) of 36.0 to 36.9 in adult E66.01; Z68.36 Obesity classification: adult class 2 (BMI 35 - 39.9) Serious obesity comorbidity presence: with serious comorbidity Body mass index: BMI 36.0-36.9 Lipid disorder E78.9 Hypertension, essential I10 Paroxysmal atrial fibrillation I48.0 Mild episode of recurrent major depressive disorder F33.0 Active/Remission status: currently active Major depression episode severity: mild 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 History of cardiac ablation for atrial fibrillation Z98.890; I48.91 Assessment & Plan Assessment & Plan (1) Encounter for general adult medical examination with abnormal findings: Code(s): Z00.01 - Encounter for general adult medical examination with abnormal findings Category: Medical (2) Asthma, moderate persistent: Code(s): J45.40 - Moderate persistent asthma, uncomplicated Category: Medical Qualifiers: Asthma complication type: uncomplicated Qualified Code(s): J45.40 - Moderate persistent asthma, uncomplicated (3) Obesity due to excess calories: Code(s): E66.09 - Other obesity due to excess calories Category: Medical Qualifiers: Obesity classification: adult class 2 (BMI 35 - 39.9) Serious obesity comorbidity presence: with serious comorbidity Body mass index: BMI 36.0-36.9 Qualified Code(s): E66.01 - Morbid (severe) obesity due to excess calories; Z68.36 - Body mass index [BMI] 36.0-36.9, adult (4) Lipid disorder: Code(s): E78.9 - Disorder of lipoprotein metabolism, unspecified Category: Medical (5) Hypertension, essential: Code(s): I10 - Essential (primary) hypertension Category: Medical (6) Paroxysmal atrial fibrillation: Code(s): I48.0 - Paroxysmal atrial fibrillation Category: Medical (7) Depression, major, recurrent: Code(s): F33.9 - Major depressive disorder, recurrent, unspecified Category: Medical Qualifiers: Active/Remission status: currently active Major depression episode severity: mild Qualified Code(s): F33.0 - Major depressive disorder, recurrent, mild (8) 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 - Follow up in three months. - Please contact the office if you have any problems picking up your medication. - Continue to focus on weight loss, with a goal of losing another 10 pounds. - Remember to schedule your colonoscopy next year. - f.u with cardio, continue cardiac meds meanwhile - continue other meds Medications: Changed From Wegovy (semaglutide (weight loss)) administer weeks 1 through 4 of therapy 0.25 mg (0.5 mL) subcut QWEEK 2 mL 2RF NS E66.01 - Morbid (severe) obesity due to excess calories, E78.9 - Disorder of lipoprotein metabolism, unspecified, I10 - Essential (primary) hypertension, I48.0 - Paroxysmal atrial fibrillation, Z68.36 - Body mass index [BMI] 36.0- 36.9, adult To semaglutide (weight loss) administer weeks 1 through 4 of therapy 0.5 mg (0.5 mL) subcut QWEEK 2.5 mL 2RF 30 days E66.01 - Morbid (severe) obesity due to excess calories, E78.9 - Disorder of lipoprotein metabolism, unspecified, I10 - Essential (primary) hypertension, I48.0 - Paroxysmal atrial fibrillation, Z68.36 - Body mass index [BMI] 36.0-36.9, adult
== END 2025-02-11 10:45 | disposition home or self-care (01) ==
LOC: HO.HMCC 10:21
PROVIDERS: PCP Internal Medicine; Visit Provider Internal Medicine
DX: Z00.01 Encounter for general adult medical examination with abnormal findings (principal); E66.01 Morbid (severe) obesity due to excess calories; I48.0 Paroxysmal atrial fibrillation; Z68.36 Body mass index [BMI] 36.0-36.9, adult; I48.91 Unspecified atrial fibrillation; J45.40 Moderate persistent asthma, uncomplicated; E78.9 Disorder of lipoprotein metabolism, unspecified; I10 Essential (primary) hypertension; F33.0 Major depressive disorder, recurrent, mild; Z79.01 Long term (current) use of anticoagulants; Z98.890 Other specified postprocedural states